=== PATIENT | male | born 1955 | race African-American/Black ===

== ENCOUNTER 2019-09-02 20:24 | Inpatient (IN) | payer MEDICARE, OTHER ==
[2019-09-02] MEDS ORDERED: ACETAMINOPHEN 325 MG TABLET PO ONE (20:42)
[2019-09-02] MEDS ORDERED: NORMAL SALINE IV PRN (22:13)
--- NOTE | 2019-09-02 22:17 | ER Document Report ---
ED General - General Chief Complaint: Dizziness Stated Complaint: FEVER/HEADACHE Time Seen by Provider: 09/02/19 21:45 Mode of Arrival: Ambulatory Information source: Patient Notes: 63-year-old male presents to the emergency department with a complaint of cough, fever, decreased appetite, generalized body aches and pains which began this morning. He states that he was feeling fine until the onset of symptoms earlier during the day. He denies exposure to anyone with known coronavirus infection. He has a history of hypertension, diabetes mellitus and he is a smoker. On arrival temperature was notably 103, heart rate 124, O2 sat room air 92% with a respiratory rate which fluctuated between 20 and 40 breaths/min. - Related Data Allergies/Adverse Reactions: No Known Allergies Allergy (Unverified 09/02/19 22:33) Home Medications: Symbicort. Asa 81mg daily. DM pill. B/P pill Past Medical History - Social History Smoking Status: Current Every Day Smoker Chew tobacco use (# tins/day): No Frequency of alcohol use: Occasional Drug Abuse: None Family History: Reviewed & Not Pertinent Patient has homicidal ideation: No - Past Medical History Cardiac Medical History: Reports: Hx Hypertension Denies: Hx Congestive Heart Failure Pulmonary Medical History: Denies: Hx COPD Endocrine Medical History: Reports: Hx Diabetes Mellitus Type 2 Review of Systems - Review of Systems Notes: Constitutional: + Fever. HENT: Negative for sore throat. Eyes: Negative for visual changes. Cardiovascular: Negative for chest pain. Respiratory: + Cough and + shortness of breath. Gastrointestinal: Negative for abdominal pain, vomiting or diarrhea. Genitourinary: Negative for dysuria. Musculoskeletal: + Generalized myalgia Skin: Negative for rash. Neurological: Negative for headaches, weakness or numbness. 10 point ROS negative except as marked above and in HPI. Physical Exam - Vital signs Vitals: Temp Pulse Resp BP Pulse Ox 103.0 F H 124 H 20 125/66 92 09/02/19 20:35 09/02/19 20:35 09/02/19 20:35 09/02/19 20:35 09/02/19 20:35 - Notes Notes: PHYSICAL EXAMINATION: Physical Exam: General: Well-nourished well-developed in no acute distress HEENT: NC/AT, pupils equal round and reactive to light, MM moist,nares clear, oropharynx clear, airway patent Neck: supple, no adenopathy, no masses. Good range of motion Lungs: clear, no wheezing, no rales no rhonchi CVS: Tachycardic rate and rhythm no murmur gallop or rub Abdomen: Soft, active, nontender, no masses, no hepatosplenomegaly Ext: No edema, clubbing or cyanosis. Neuro: Alert and responsive, moving all 4 extremities on command, cranial nerves intact, no focal findings Skin: Intact no open lesions, no rash PSYCH: Normal mood, normal affect. Course - Re-evaluation Re-evalutation: 09/03/19 04:12 63-year-old male presents to the emergency department with fever, myalgias, headache, and generalized weakness. States symptoms began approximately 2 days ago in his been progressive since that time. Patient is evaluated for possible sepsis with blood cultures x2, lactate level, IV fluids at 30 mL/kg and Zosyn IV. Chest x-ray is negative and the patient's urinalysis is negative for signs of infection. I contacted the hospitalist, Dr. Navarrete, he will admit the patient to the hospital for further evaluation and treatment. A rapid COVID-19 tests is being done prior to admission. - Vital Signs Vital signs: Temp Pulse Resp BP Pulse Ox 98.6 F 124 H 14 93/63 L 100 09/03/19 01:30 09/02/19 20:35 09/03/19 04:00 09/03/19 04:00 09/03/19 04:00 - Laboratory Result Diagrams: 09/02/19 20:50 09/02/19 20:50 Laboratory results interpreted by me: 09/02/19 09/02/19 09/03/19 20:50 20:50 01:48 WBC 12.0 H RBC 4.24 L Hgb 13.2 L Lymph % (Auto) 6.9 L Absolute Neuts (auto) 10.4 H Seg Neutrophils % 86.7 H Sodium 130.0 L Potassium 3.4 L Chloride 95 L BUN 49 H Creatinine 3.61 H Est GFR ( Amer) 21 L Est GFR (MDRD) Non-Af 17 L Glucose 155 H Calcium 8.3 L Total Bilirubin 1.8 H Direct Bilirubin 1.2 H Urine Protein 100 H Urine Blood LARGE H Urine Urobilinogen 4.0 H - Diagnostic Test Radiology reviewed: Image reviewed, Reports reviewed - Chest x-ray: No acute pulmonary findings. - EKG Interpretation by [place] Rate: Tachycardia - Sinus tachycardia with a rate of 104, no acute ST or T wave abnormalities noted. Critical Care Note - Critical Care Note Total time excluding time spent on procedures (mins): 60 - Critical care time spent obtaining history from patient or surrogate, discussions with consultants, development of treatment plan with patient or surrogate, evaluation of patient's response to treatment, examination of patient, ordering and performing treatments and interventions, ordering and review of laboratory studies, re- evaluation of patient's condition, ordering and review of radiographic studies and review of old charts Discharge - Discharge Clinical Impression: SIRS (systemic inflammatory response syndrome), OMER (acute kidney injury), Volume depletion, Diabetes mellitus type 2 in nonobese Fever Qualifiers: Fever type: unspecified Qualified Code(s): R50.9 - Fever, unspecified Condition: Good Disposition: ADMITTED INPATIENT Admitting Provider: Rosalba (Hospitalist) Unit Admitted: Medical Floor
--- NOTE | 2019-09-02 22:36 | RADIOLOGY REPORT (SQ) ---
EXAM DESCRIPTION: Chest radiograph one view, CLINICAL HISTORY: fever, cough COMPARISON: None FINDINGS: Cardiac silhouette is within normal limits. EKG leads project over the chest. There is mild elevation of the right hemidiaphragm There is no focal parenchymal or pleural disease. There is no acute osseous process visualized. IMPRESSION: No evidence of acute cardiopulmonary disease.
[2019-09-02 22:56] LABS: ABSOLUTE LYMPHOCYTES (AUTO) 0.8 10^3/uL (0.5-4.7); ABSOLUTE MONOCYTES (AUTO) 0.7 10^3/uL (0.1-1.4); ABSOLUTE NEUT (AUTO) 10.4 10^3/uL (1.7-8.2); BASOPHILS % (AUTO) 0.4 % (0-2); HEMATOCRIT 37.9 % (37.9-51.0); HEMOGLOBIN 13.2 g/dL (13.5-17.0); LYMPHOCYTES % (AUTO) 6.9 % (13-45); MEAN CORPUSCULAR HEMOGLOBIN 31.2 pg (27.0-33.4); MEAN CORPUSCULAR HGB CONC 34.9 g/dL (32.0-36.0); MEAN CORPUSCULAR VOLUME 89 fl (80-97); PLATELET COUNT 182 10^3/uL (150-450); RED BLOOD COUNT 4.24 10^6/uL (4.35-5.55); RED CELL DISTRIBUTION WIDTH 13.2 % (11.5-14.0); SEGMENTED NEUTROPHILS % (AUTO) 86.7 % (42-78); TOTAL CELLS COUNTED % (AUTO) 100 %
[2019-09-02 23:08] LABS: ALBUMIN 3.5 g/dL (3.5-5.0); ALKALINE PHOSPHATASE 74 U/L (38-126); ANION GAP 11 (5-19); ASPARTATE AMINO TRANSFERASE 55 U/L (17-59); BILIRUBIN,DIRECT 1.2 mg/dL (0.0-0.4); BILIRUBIN,TOTAL 1.8 mg/dL (0.2-1.3); BLOOD UREA NITROGEN 49 mg/dL (7-20); CALCIUM 8.3 mg/dL (8.4-10.2); CARBON DIOXIDE 24 mmol/L (22-30); CHLORIDE 95 mmol/L (98-107); GLUCOSE 155 mg/dL (75-110); POTASSIUM 3.4 mmol/L (3.6-5.0); TOTAL PROTEIN 7.1 g/dL (6.3-8.2)
[2019-09-02] MEDS ORDERED: IBUPROFEN 800 MG TABLET PO ONE (23:25)
[2019-09-02 23:43] LABS: A TYPE INFLUENZA AG NEGATIVE (NEGATIVE); B INFLUENZA AG NEGATIVE (NEGATIVE)
[2019-09-02] MEDS ORDERED: PIPERACILLIN/TAZOBACTAM 4.5 GM VIAL IV ONE (23:57)
[2019-09-03] MEDS ORDERED: PIPERACILLIN SODIUM/TAZOBACTAM 4.5 GM in NORMAL SALINE 100 ML IV SCH ×2
[2019-09-03] MEDS: PIPERACILLIN SODIUM/TAZOBACTAM 4.5 GM in NORMAL SALINE 100 ML IV SCH ×2 (00:07→03:15)
[2019-09-03 02:28] LABS: APPEARANCE,URINE CLOUDY; BILIRUBIN,URINE NEGATIVE (NEGATIVE); COLOR,URINE AMBER; GLUCOSE, URINE NEGATIVE (NEGATIVE); KETONES,URINE NEGATIVE (NEGATIVE); PROTEIN,URINE 100 mg/dL (NEGATIVE); URINE SPECIFIC GRAVITY 1.017
[2019-09-03] MEDS ORDERED: NORMAL SALINE 1000 ML 1,000 ML IV ONE ×2 (03:20→04:09)
[2019-09-03] MEDS ORDERED: MAG HYDROX/AL HYDROX/SIMETH SUSP 30 ML UDCUP PO PRN (03:55)
[2019-09-03] MEDS ORDERED: MAGNESIUM HYDROXIDE SUSP 30 ML UDCUP PO PRN (03:55)
[2019-09-03] MEDS ORDERED: PROMETHAZINE HCL INJ 25 MG/1 ML VIAL IV PRN (03:55)
[2019-09-03] MEDS ORDERED: LORAZEPAM INJ 2 MG/1 ML VIAL IV PRN (03:55)
[2019-09-03] MEDS ORDERED: NICOTINE 21 MG/24 HR PATCH.TD24 TD PRN (03:55)
[2019-09-03] MEDS ORDERED: MORPHINE SULFATE 10 MG/ML INJ IV PRN ×3 (03:55)
[2019-09-03] MEDS ORDERED: DEXTROSE 40% GEL 15 GM TUBE PO PRN ×2 (03:57)
[2019-09-03] MEDS ORDERED: GLUCAGON,HUMAN RECOMB 1 MG INJ IM PRN (03:57)
[2019-09-03] MEDS ORDERED: RINGERS SOLUTION,LACTATED 1,000 ML IV PRN (03:57)
[2019-09-03] MEDS ORDERED: DEXTROSE 50%-WATER 25 GM/50 ML DISP.SYRIN IV PRN ×2 (03:57)
[2019-09-03] MEDS ORDERED: MEROPENEM 500 MG VIAL IV PRN (04:00)
[2019-09-03] MEDS: FAMOTIDINE 20 MG TABLET PO SCH ×3 (04:40→22:14)
[2019-09-03] MEDS ORDERED: MEROPENEM 500 MG VIAL ONE (06:04)
[2019-09-03] MEDS: MEROPENEM 500 MG in NORMAL SALINE 50 ML IV SCH ×2 (06:17→14:32)
[2019-09-03] MEDS: HEPARIN SOD (PORCINE) 5,000 UNIT/ML 1 ML VIAL SUBCUT SCH ×3 (06:18→22:12)
--- NOTE | 2019-09-03 06:31 | PDOC H&P ---
History of Present Illness Admission Date/PCP: 09/03/2019 03:28 Alcon Goss MD Patient complains of: Fever History of Present Illness: BRUNILDA LIMON is a 63 year old male who presented emergency room with a 1 day history of fever. He admits rapid onset of a subjective fever beginning on the morning of 09/02/2019. His fever was accompanied by chills, mild dyspnea, headache and a nonproductive cough. His fever was associated with severe malaise, ague, and decreased appetite. He denies other associated or accompanying signs and symptoms. He denies prior similar episodes. He has not identified any aggravating or ameliorating factors for his fever. In the emergency room he was found to have a fever of 103 F with a mild tachycardia and mild hypoxia. His white blood count was mildly elevated at 12,000 however his serum creatinine was 3.61. He was treated as a possible sepsis in the ER and subsequently admitted to the hospital for further evaluation and treatment. He was tested negative for COVID-19 in the ER. Past Medical History Cardiac Medical History: Reports: Hypertension Denies: Atrial Fibrillation, Congestive Heart Failure, Coronary Artery Disease, Myocardial Infarction, Hyperlipidema Pulmonary Medical History: Denies: Asthma, Chronic Obstructive Pulmonary Disease (COPD) EENT Medical History: Denies: Cataracts, Ears - Hearing aids Neurological Medical History: Denies: Hemorrhagic CVA, Ischemic CVA, Seizures Endocrine Medical History: Reports: Diabetes Mellitus Type 2 Denies: Diabetes Mellitus Type 1, Hyperthyroidism, Hypothyroidism, Obesity Renal/ Medical History: Denies: Chronic Kidney Disease, Nephrolithiasis Malignancy Medical History: Reports: None GI Medical History: Denies: Cirrhosis, Crohn's Disease, Gastroesophageal Reflux Disease, Hepatitis, Peptic Ulcer Disease, Ulcerative Colitis Musculoskeltal Medical History: Denies: Arthritis, Gout Skin Medical History: Denies: Eczema, Psoriasis Psychiatric Medical History: Reports: Tobacco Dependency Denies: Alcohol Dependency, Substance Abuse Traumatic Medical History: Reports: None Hematology: Denies: Anemia, Bleeding Tendencies Infectious Medical History: Reports: None Past Surgical History Past Surgical History: Reports: None Social History Information Source: Patient Lives with: Spouse/Significant other Smoking Status: Current Every Day Smoker Cigarettes Packs Per Day: 1 Electronic Cigarette use?: No Frequency of Alcohol Use: Social - Generally drinks on weekends Hx Recreational Drug Use: No Drugs: None Hx Prescription Drug Abuse: No - Advance Directive Resuscitation Status: Full Code Surrogate healthcare decision maker:: Desmond Limon Family History Family History: DM. denies: CAD, Hypertension, Malignancy Parental Family History Reviewed: Yes Children Family History Reviewed: No Sibling(s) Family History Reviewed.: Yes Medication/Allergy Allergies/Adverse Reactions: No Known Allergies Allergy (Unverified 09/02/19 22:33) Review of Systems Constitutional: PRESENT: as per HPI, chills, fever(s), headache(s) Eyes: ABSENT: visual disturbances, other - Eye pain Ears: ABSENT: hearing changes, other - Ear pain Nose, Mouth, and Throat: PRESENT: as per HPI, headache(s). ABSENT: sore throat Cardiovascular: ABSENT: chest pain, dyspnea on exertion, palpitations Respiratory: PRESENT: as per HPI, cough, dyspnea. ABSENT: hemoptysis, sputum Gastrointestinal: PRESENT: other - Decreased appetite. ABSENT: abdominal pain, constipation, diarrhea, nausea, vomiting Genitourinary: ABSENT: difficulty urinating, dysuria, hematuria Musculoskeletal: ABSENT: back pain, joint swelling, muscle weakness Integumentary: ABSENT: pruritus, rash Neurological: ABSENT: confusion, convulsions, focal weakness, memory loss, syncope Psychiatric: ABSENT: anxiety, depression Endocrine: ABSENT: cold intolerance, heat intolerance, polydipsia, polyphagia, polyuria Hematologic/Lymphatic: ABSENT: easy bleeding, easy bruising Allergic/Immunologic: ABSENT: seasonal rhinorrhea Physical Exam Vital Signs: Temp Pulse Resp BP Pulse Ox 98.6 F 124 H 20 93/65 L 99 09/03/19 01:30 09/02/19 20:35 09/03/19 02:44 09/03/19 02:44 09/03/19 02:44 Intake & Output 09/01/19 09/02/19 09/03/19 23:59 23:59 23:59 Intake Total 2300 Balance 2300 Weight 73 kg General appearance: PRESENT: no acute distress, cooperative Head exam: PRESENT: atraumatic, normocephalic Eye exam: PRESENT: conjunctiva pink. ABSENT: conjunctival injection, scleral icterus Ear exam: PRESENT: normal external ear exam. ABSENT: bleeding, drainage Mouth exam: PRESENT: dry mucosa, neck supple Neck exam: ABSENT: thyromegaly, tracheal deviation Respiratory exam: PRESENT: clear to auscultation tammy, symmetrical, unlabored Cardiovascular exam: PRESENT: RRR. ABSENT: clicks, gallop, rubs Pulses: PRESENT: normal radial pulses, normal dorsalis pedis pul Vascular exam: PRESENT: normal capillary refill. ABSENT: pallor GI/Abdominal exam: PRESENT: normal bowel sounds, soft. ABSENT: tenderness Rectal exam: PRESENT: deferred Extremities exam: ABSENT: joint swelling, pedal edema Musculoskeletal exam: ABSENT: deformity, dislocation Neurological exam: PRESENT: alert, oriented to person, oriented to place, oriented to time, oriented to situation, CN II-XII grossly intact. ABSENT: motor sensory deficit Psychiatric exam: PRESENT: appropriate affect, normal mood Skin exam: PRESENT: dry, intact, warm. ABSENT: jaundice, rash, urticaria Results Laboratory Results: 09/02/19 20:50 09/02/19 20:50 09/02/19 09/02/19 09/02/19 20:50 20:50 20:50 WBC 12.0 H RBC 4.24 L Hgb 13.2 L Hct 37.9 MCV 89 MCH 31.2 MCHC 34.9 RDW 13.2 Plt Count 182 Seg Neutrophils % 86.7 H Sodium 130.0 L Potassium 3.4 L Chloride 95 L Carbon Dioxide 24 Anion Gap 11 BUN 49 H Creatinine 3.61 H Est GFR ( Amer) 21 L Glucose 155 H Lactic Acid 1.7 Calcium 8.3 L Total Bilirubin 1.8 H AST 55 Alkaline Phosphatase 74 Total Protein 7.1 Albumin 3.5 Urine Color Urine Appearance Urine pH Ur Specific [place] Urine Protein Urine Glucose (UA) Urine Ketones Urine Blood Urine RBC (Auto) 09/03/19 09/03/19 01:48 01:48 WBC RBC Hgb Hct MCV MCH MCHC RDW Plt Count Seg Neutrophils % Sodium Potassium Chloride Carbon Dioxide Anion Gap BUN Creatinine Est GFR ( Amer) Glucose Lactic Acid 1.3 Calcium Total Bilirubin AST Alkaline Phosphatase Total Protein Albumin Urine Color MAYI Urine Appearance CLOUDY Urine pH 5.0 Ur Specific [place] 1.017 Urine Protein 100 H Urine Glucose (UA) NEGATIVE Urine Ketones NEGATIVE Urine Blood LARGE H Urine RBC (Auto) 4 Impressions: Chest X-Ray 09/02/19 21:46 IMPRESSION: No evidence of acute cardiopulmonary disease. Assessment and Plan - Diagnosis (1) SIRS (systemic inflammatory response syndrome) Is this a current diagnosis for this admission?: Yes (2) Elevated serum creatinine Is this a current diagnosis for this admission?: Yes (3) Diabetes mellitus type 2 in nonobese Is this a current diagnosis for this admission?: Yes (4) Hypertension Qualifiers: Hypertension type: essential hypertension Qualified Code(s): I10 - Essential (primary) hypertension Is this a current diagnosis for this admission?: Yes (5) Hyponatremia Is this a current diagnosis for this admission?: Yes (6) Hypokalemia Is this a current diagnosis for this admission?: Yes (7) Tobacco use disorder, continuous Is this a current diagnosis for this admission?: Yes - Plan Summary Summary: Patient will be admitted to the medical floor where he will receive routine supportive and symptomatic cares. He will be treated with high-volume IV fluids utilizing lactated Ringer's solution at 250 mL/h initially. He will receive meropenem 500 mg IV every 8 hours. Blood cultures are pending. He will use Ativan 1 mg IV every 4 hours as needed for restlessness or anxiety. He will receive morphine sulfate 2 to 4 mg IV every 2 hours as needed for pain utilizing a sliding scale for dosing. CBCs, metabolic profiles, hemoglobin A1c's, magnesium levels, lipid profiles, thyroid profiles and additional radiography will be obtained as appropriate. He will initially be treated with a cardiac, prerenal and diabetic restricted diet. A nephrology consultation with Dr. Heredia will be obtained. Patient's medication will need to be adjusted in light of his newly discovered renal disease. Before meals and at bedtime Accu- Cheks will be obtained with sliding scale insulin used to treat hyperglycemia and a hypoglycemic protocol in place. Smoking cessation is advised and counseled briefly at the bedside. A nicotine replacement patch will be available for the patient's use, if desired. - Time Time Spent with patient: 15-24 minutes Smoking Cessation Education: 3 to 10 minutes Medications reviewed and adjusted accordingly: Yes Anticipated discharge: Home - Inpatient Certification Based on my medical assessment, after consideration of the patient's co morbidities, presenting symptoms, or acuity I expect that the services needed warrant INPATIENT care.: Yes I certify that my determination is in accordance with my understanding of Medicare's requirements for reasonable and necessary INPATIENT services [42 CFR 412.3e].: Yes Medical Necessity: Need Close Monitoring Due to Risk of Patient Decompensation, Need For IV Fluids, Need for IV Antibiotics, Risk of Complication if Not Cared For in Hospital, Risk of Diagnosis Which Will Require Inpatient Eval/Care/Monitoring
[2019-09-03] MEDS: INSULIN REG, HUMAN 100 UNIT/ML 3 ML VIAL (PYX) SUBCUT SCH ×4 (08:23→22:13)
[2019-09-03] MEDS: DOCUSATE SODIUM 100 MG CAPSULE PO SCH ×2 (09:31→17:51)
--- NOTE | 2019-09-03 09:35 | RADIOLOGY REPORT (SQ) ---
EXAM DESCRIPTION: CHEST 2 VIEWS IMAGES COMPLETED DATE/TIME: 09/03/2019 9:04 am REASON FOR STUDY: fever COMPARISON: Previous day. EXAM PARAMETERS: NUMBER OF VIEWS: two views TECHNIQUE: Digital Frontal and Lateral radiographic views of the chest acquired. RADIATION DOSE: NA LIMITATIONS: none FINDINGS: LUNGS AND PLEURA: Segmental airspace disease in the right lower lobe. No effusion. MEDIASTINUM AND HILAR STRUCTURES: No masses or contour abnormalities. HEART AND VASCULAR STRUCTURES: Heart normal size. No evidence for failure. BONES: No acute findings. HARDWARE: None in the chest. OTHER: No other significant finding. IMPRESSION: Right lower lobe pneumonia. TECHNICAL DOCUMENTATION: JOB ID: [id number] [employer]- All Rights Reserved Reading location - IP/workstation name: [email or web address]
[2019-09-03 09:48] LABS: HEMATOCRIT 32.3 % (37.9-51.0); HEMOGLOBIN 11.4 g/dL (13.5-17.0); MEAN CORPUSCULAR HEMOGLOBIN 31.4 pg (27.0-33.4); MEAN CORPUSCULAR HGB CONC 35.3 g/dL (32.0-36.0); MEAN CORPUSCULAR VOLUME 89 fl (80-97); PLATELET COUNT 152 10^3/uL (150-450); RED BLOOD COUNT 3.64 10^6/uL (4.35-5.55); RED CELL DISTRIBUTION WIDTH 13.7 % (11.5-14.0); WHITE BLOOD COUNT 9.1 10^3/uL (4.0-10.5)
[2019-09-03 10:16] LABS: ANION GAP 10 (5-19); BLOOD UREA NITROGEN 49 mg/dL (7-20); CALCIUM 7.2 mg/dL (8.4-10.2); CARBON DIOXIDE 17 mmol/L (22-30); CHLORIDE 105 mmol/L (98-107); GLUCOSE 111 mg/dL (75-110); POTASSIUM 3.7 mmol/L (3.6-5.0)
[2019-09-03 13:20] LABS: ANION GAP 14 (5-19); BLOOD UREA NITROGEN 52 mg/dL (7-20); CALCIUM 7.4 mg/dL (8.4-10.2); CARBON DIOXIDE 16 mmol/L (22-30); CHLORIDE 104 mmol/L (98-107); GLUCOSE 108 mg/dL (75-110); POTASSIUM 3.9 mmol/L (3.6-5.0)
[2019-09-03] MEDS: ACETAMINOPHEN 325 MG TABLET PO PRN ×2 (14:36→23:44)
[2019-09-03] MEDS: NORMAL SALINE 1000 ML 1,000 ML IV PRN (14:37)
--- NOTE | 2019-09-03 17:57 | RADIOLOGY REPORT (SQ) ---
EXAM DESCRIPTION: U/S RETROPERITON LTD IMAGES COMPLETED DATE/TIME: 09/03/2019 5:32 pm REASON FOR STUDY: OMER COMPARISON: None. TECHNIQUE: Dynamic and static grayscale images acquired of the kidneys and bladder and recorded on P ACS. Additional selected color Doppler and spectral images recorded. LIMITATIONS: None. FINDINGS: RIGHT KIDNEY: The right kidney measures 11.3 x 5.6 x 5.7 cm, normal size. Normal echoge nicity. No solid or suspicious masses. No hydronephrosis. No calcifications. LEFT KIDNEY: The left kidney measures 10.6 x 4.1 x 5.4 cm, normal size. Normal echogenicity. No solid or suspicious masses. No hydronephrosis. No calcifications. BLADDER: No masses. Bilateral ureteral jets are not visualized. OTHER FINDINGS: No other significant finding. IMPRESSION: 1. NORMAL RENAL AND BLADDER ULTRASOUND. TECHNICAL DOCUMENTATION: JOB ID: [id number] [employer]- All Rights Reserved Reading location - IP/workstation name: [email or web address]
--- NOTE | 2019-09-03 19:29 | PDOC CONSULTATION ---
Consultation Consult Date: 09/03/19 Provider Consulted: PAULINE GARRIDO Consult reason:: OMER History of Present Illness Admission Date/PCP: 09/03/19 04:06 History of Present Illness: BRUNILDA LIMON is a 63 year old male with history of hypertension and diabetes mellitus type 2 who presented to the emergency room last night due to acute onset of fever associated with chills, mild dyspnea, headache, nonproductive cough, malaise, fatigue and decreased appetite. In the emergency room he had a fever of 103 F, mild tachycardia and mild hypoxia. He also presented with elevated white count of 12,000. His blood pressure is relatively on the low side as low as 86/62 and has been hanging around 90s over 60s until current. He also presented with an elevated BUN of 49, creatinine of 3.61 with EGFR of 21. Baseline kidney function is unknown as the last visit her blood work available was from July 01, 2013 which at that time he had a BUN of 19, creatinine of 1.42 with GFR greater than 60. His urinalysis is positive for protein of 100, large blood but only for RBC, had WBC of 6, hyaline casts of stool and only 1 squamous cells. His first chest x-ray showed no evidence of any acute cardi opulmonary disease. A repeat chest x-ray was done today which showed right lower lobe pneumonia. He was given IV fluid boluses and since admission his fluid balance is +3 L. Admitting impression was SIRS. He tested negative for influenza A, influenza B, group A strep and COVID-19. Upon talking to the patient today he denies any history of travel. He denies any nausea, vomiting, no diarrhea. He denies any shortness of breath or chest pains. Patient stated that his primary care provider, Dr. Frias mentioned to him that he has decreased kidney function last year and this is words, he said "50- 50". He said he has been drinking fluids but then also stated that he had decreased appetite for the past 24 hours. He denies any use of NSAIDs, intake of any herbal medications no other new medications. He denies any decreased urine output, microhematuria nor foamy urine. He denies any unusual rash nor polyarthralgia. Patient is currently being treated with IV meropenem and normal saline at 125 mL an hour. His labs today showed a BUN of 49, creatinine of 4.23, EGFR of 17, bicarbonate of 17 and calcium of 7.2. Past Medical History Cardiac Medical History: Reports: Hypertension-primary Endocrine Medical History: Reports: Diabetes Mellitus Type 2 Psychiatric Medical History: Reports: Tobacco Dependency Past Surgical History Past Surgical History: Reports: None Social History Information Source: Patient Lives with: Spouse/Significant other Smoking Status: Current Every Day Smoker Cigarettes Packs Per Day: 1 Electronic Cigarette use?: No Number of Years Smokin Frequency of Alcohol Use: Social - Generally drinks on weekends Hx Recreational Drug Use: No Drugs: None Hx Prescription Drug Abuse: No - Advance Directive Resuscitation Status: Full Code Family History Family History: DM - Mother, End Stage Renal Disease - Sister who is on dialysis, Hypertension - Mother Parental Family History Reviewed: Yes Children Family History Reviewed: Unknown Sibling(s) Family History Reviewed.: Yes Medication/Allergy Home Medications: Aspirin [Ecotrin 325 mg EC Tablet] 325 mg PO DAILY 09/03/19 Hydrochlorothiazide 12.5 mg PO QAM 09/03/19 Simvastatin 20 mg PO QPM 09/03/19 Telmisartan 80 mg PO QAM 09/03/19 Allergies/Adverse Reactions: No Known Allergies Allergy (Unverified 09/02/19 22:33) Review of Systems All systems: reviewed and no additional remarkable complaints except as stated Review of Systems: Constitutional: ABSENT: weight gain, weight loss; admits fever, chills, headache, fatigue and body malaise Eyes: ABSENT: visual disturbances Ears: ABSENT: hearing changes Cardiovascular: ABSENT: chest pain, dyspnea on exertion, edema, orthropnea, palpitations Respiratory: ABSENT: dyspnea, hemoptysis; admits nonproductive cough Gastrointestinal: ABSENT: abdominal pain, constipation, diarrhea, hematemesis, hematochezia, nausea, vomiting Genitourinary: ABSENT: dysuria, hematuria Musculoskeletal: ABSENT: joint swelling Integumentary: ABSENT: rash, wounds Neurological: ABSENT: abnormal gait, abnormal speech, confusion, dizziness, focal weakness, numbness, syncope Psychiatric: ABSENT: anxiety, depression Endocrine: ABSENT: cold intolerance, heat intolerance, polydipsia, polyuria Hematologic/Lymphatic: ABSENT: easy bleeding, easy bruising, lymphadenopathy Physical Exam Vital Signs: Temp Pulse Resp BP Pulse Ox 98.0 F 83 18 90/60 L 95 09/03/19 07:05 09/03/19 07:05 09/03/19 07:05 09/03/19 07:05 09/03/19 07:05 Intake & Output 09/02/19 09/03/19 09/04/19 06:59 06:59 06:59 Intake Total 3433 50 Output Total 0 Balance 3433 50 Weight 82.2 kg Exam: General appearance: No acute distress, cooperative, well-developed, well- nourished Head exam: PRESENT: atraumatic, normocephalic Eye exam: PRESENT: Conjunctiva Tobias, EOMI, PERRLA. ABSENT: conjunctival injection, scleral icterus Mouth exam: PRESENT: moist, neck supple, tongue midline Neck exam: PRESENT: full ROM. ABSENT: carotid bruit, JVD, lymphadenopathy, thyromegaly Respiratory exam: PRESENT: clear to auscultation bilaterally. Minimal basal crackles ABSENT: Rhonchi, stridor, wheezes Cardiovascular exam: PRESENT: RRR, +S1, +S2. ABSENT: systolic murmur Pulses: PRESENT: normal radial pulses, normal dorsalis pedis pulses GI/Abdominal exam: PRESENT: normal bowel sounds, soft. ABSENT: guarding, mass, tenderness Rectal exam: Deferred Extremities exam: PRESENT: full ROM. ABSENT: calf tenderness, pedal edema Musculoskeletal: PRESENT: full ROM. ABSENT: deformity Neurological exam: PRESENT: alert, Awake, Oriented to person, Oriented to place, Oriented to time, reflexes normal, CN II-XII grossly intact. ABSENT: motor sensory deficit Psychiatric exam: PRESENT: appropriate affect, normal mood. ABSENT: homicidal ideation, suicidal ideation Skin exam: PRESENT: intact, dry, warm. ABSENT: rash Results Laboratory Results: 09/03/19 09:24 09/03/19 09:24 09/02/19 09/02/19 09/02/19 20:50 20:50 20:50 WBC 12.0 H RBC 4.24 L Hgb 13.2 L Hct 37.9 MCV 89 MCH 31.2 MCHC 34.9 RDW 13.2 Plt Count 182 Seg Neutrophils % 86.7 H Sodium 130.0 L Potassium 3.4 L Chloride 95 L Carbon Dioxide 24 Anion Gap 11 BUN 49 H Creatinine 3.61 H Est GFR ( Amer) 21 L Glucose 155 H Lactic Acid 1.7 Calcium 8.3 L Total Bilirubin 1.8 H AST 55 Alkaline Phosphatase 74 Total Protein 7.1 Albumin 3.5 Free T3 pg/mL Urine Color Urine Appearance Urine pH Ur Specific [place] Urine Protein Urine Glucose (UA) Urine Ketones Urine Blood Urine RBC (Auto) 09/02/19 09/03/19 09/03/19 20:50 01:48 01:48 WBC RBC Hgb Hct MCV MCH MCHC RDW Plt Count Seg Neutrophils % Sodium Potassium Chloride Carbon Dioxide Anion Gap BUN Creatinine Est GFR ( Amer) Glucose Lactic Acid 1.3 Calcium Total Bilirubin AST Alkaline Phosphatase Total Protein Albumin Free T3 pg/mL 2.78 Urine Color MAYI Urine Appearance CLOUDY Urine pH 5.0 Ur Specific [place] 1.017 Urine Protein 100 H Urine Glucose (UA) NEGATIVE Urine Ketones NEGATIVE Urine Blood LARGE H Urine RBC (Auto) 4 09/03/19 09/03/19 09/03/19 05:03 09:24 09:24 WBC 9.1 RBC 3.64 L Hgb 11.4 L Hct 32.3 L MCV 89 MCH 31.4 MCHC 35.3 RDW 13.7 Plt Count 152 Seg Neutrophils % Sodium 132.0 L Potassium 3.7 Chloride 105 Carbon Dioxide 17 L Anion Gap 10 BUN 49 H Creatinine 4.23 H Est GFR ( Amer) 17 L Glucose 111 H Lactic Acid 1.2 Calcium 7.2 L Total Bilirubin AST Alkaline Phosphatase Total Protein Albumin Free T3 pg/mL Urine Color Urine Appearance Urine pH Ur Specific [place] Urine Protein Urine Glucose (UA) Urine Ketones Urine Blood Urine RBC (Auto) Impressions: Chest X-Ray 09/03/19 08:09 IMPRESSION: Right lower lobe pneumonia. Assessment & Plan - Diagnosis (1) OMER (acute kidney injury) Is this a current diagnosis for this admission?: Yes Plan: Patient is subjectively and reportedly nonoliguric although urine output is not currently being quantified. Possibly due to acute prerenal azotemia due to poor oral intake and hypotension but need to consider acute tubular necrosis as well. Patient has mild proteinuria and very minimal microhematuria. Baseline kidney function is unknown. Per history the patient might have underlying chronic kidney disease as well with risk factors of diabetes and hypertension. We will get previous lab records from Dr. Goss within the year to determine base line kidney function. Continue IV fluid hydration. Avoid NSAIDs and other nephrotoxic medications. Stricken intake and output recording. We will check kidney ultrasound in this elderly gentleman daily. Check urine microalbumin to creatinine ratio. Monitor kidney function. At this time the patient does not require any acute renal replacement therapy. (2) Right lower lobe pneumonia Is this a current diagnosis for this admission?: Yes Plan: On antibiotics per hospitalist. (3) SIRS (systemic inflammatory response syndrome) Is this a current diagnosis for this admission?: Yes (4) Metabolic acidosis Is this a current diagnosis for this admission?: Yes Plan: Secondary to OMER and expansion acidosis with IV hydration. (5) Hyponatremia Is this a current diagnosis for this admission?: Yes Plan: Likely due to volume depletion. (6) Hypocalcemia Plan: Monitor and replace as necessary. (7) Hypertension Qualifiers: Hypertension type: essential hypertension Qualified Code(s): I10 - Essential (primary) hypertension Is this a current diagnosis for this admission?: Yes Plan: Currently with relative hypotension due to hypovolemia. Hold blood pressure medications. (8) Diabetes mellitus type 2 in nonobese Is this a current diagnosis for this admission?: Yes - Notes Notes: Thank you very much for this consultation. We will follow-up with you. - Time Time Spent: 50 to 70 Minutes
[2019-09-03] MEDS ORDERED: AZITHROMYCIN INJ 500 MG VIAL IV SCH (20:00)
[2019-09-03] MEDS: AZITHROMYCIN 500 MG in DEXTROSE 5%-WATER 250 ML IV SCH (22:13)
--- NOTE | 2019-09-03 22:58 | EKG REPORT ---
SEVERITY:- OTHERWISE NORMAL ECG - SINUS TACHYCARDIA : Confirmed by: Adriano Carrasco 03-Sep-2019 22:57:09
[2019-09-03] MEDS: GUAIFENESIN SYRP 200 MG/10 ML UDC PO PRN (23:47)
[2019-09-04] MEDS: NORMAL SALINE 1000 ML 1,000 ML IV PRN ×3 (00:50→21:11)
[2019-09-04] MEDS: MEROPENEM 500 MG in NORMAL SALINE 50 ML IV SCH ×2 (04:09→17:00)
[2019-09-04] MEDS: ACETAMINOPHEN 325 MG TABLET PO PRN ×4 (05:36→21:12)
[2019-09-04] MEDS: HEPARIN SOD (PORCINE) 5,000 UNIT/ML 1 ML VIAL SUBCUT SCH ×3 (05:38→21:12)
[2019-09-04 06:10] LABS: HEMATOCRIT 32.8 % (37.9-51.0); HEMOGLOBIN 11.6 g/dL (13.5-17.0); MEAN CORPUSCULAR HEMOGLOBIN 31.2 pg (27.0-33.4); MEAN CORPUSCULAR HGB CONC 35.4 g/dL (32.0-36.0); MEAN CORPUSCULAR VOLUME 88 fl (80-97); PLATELET COUNT 150 10^3/uL (150-450); RED BLOOD COUNT 3.72 10^6/uL (4.35-5.55); RED CELL DISTRIBUTION WIDTH 14.1 % (11.5-14.0); WHITE BLOOD COUNT 8.6 10^3/uL (4.0-10.5)
[2019-09-04 06:32] LABS: ANION GAP 10 (5-19); BLOOD UREA NITROGEN 48 mg/dL (7-20); CALCIUM 7.4 mg/dL (8.4-10.2); CARBON DIOXIDE 19 mmol/L (22-30); CHLORIDE 105 mmol/L (98-107); CHOLESTEROL 70.54 mg/dL (0-200); GLUCOSE 109 mg/dL (75-110); POTASSIUM 3.8 mmol/L (3.6-5.0); TRIGLYCERIDES 119 mg/dL (<150)
[2019-09-04 06:44] LABS: DIRECT LDL < 30 mg/dL (<100)
[2019-09-04] MEDS: INSULIN REG, HUMAN 100 UNIT/ML 3 ML VIAL (PYX) SUBCUT SCH ×4 (09:07→21:06)
[2019-09-04] MEDS: DOCUSATE SODIUM 100 MG CAPSULE PO SCH ×2 (09:28→17:17)
[2019-09-04] MEDS: FAMOTIDINE 20 MG TABLET PO SCH ×2 (09:29→21:12)
--- NOTE | 2019-09-04 09:51 | CDI QUERY ---
CDI Query CDI Review: Dear Provider: To better reflect your patients severity of illness, morbidity, and resource utilization Please specify and document in the Progress Notes and Discharge Summary if you are monitoring / treating / evaluating any of the following conditions: Query Clinical indicators Please indicate and include in your Progress Notes as well as the Discharge Summary: Sepsis Present on Admission Sepsis ruled out Sepsis resolved Sepsis 2/2 pneumonia Sepsis unknown etiology Unable to determine Other Per H&P: in the emergency room he was found to have a fever of 103 F with a mild tachycardia and mild hypoxia. His white blood count was mildly elevated at 12,000 however his serum creatinine was 3.61. He was treated as a possible sepsis in the ER The terms probable, suspected, likely, possible or still to be ruled out may be used if you are unable to determine the exact nature of a condition. Thank you for your consideration, Clinical Documentation Physician Advisors IWONA Benjamin RN, BSN RN [email or web address] Office [phone] Office [phone]
--- NOTE | 2019-09-04 12:29 | PDOC PROGRESS REPORT ---
Subjective Progress Note for:: 09/04/19 Subjective:: The patient is sitting up in bed. He appears uncomfortable. The nurse reports that he is still spiking temperatures. He was 102.8 degrees earlier today. He reports very dry mouth and sometimes he coughs and this makes him short of breath. He is still on oxygen by nasal cannula. Reason For Visit: SIRS SYNDROME,ELEVATED SERUM CREATININE Physical Exam Vital Signs: Temp Pulse Resp BP Pulse Ox 102.8 F H 110 H 22 H 134/64 H 91 L 09/04/19 11:09 09/04/19 11:09 09/04/19 11:09 09/04/19 11:09 09/04/19 11:09 Intake & Output 09/03/19 09/04/19 09/05/19 06:59 06:59 06:59 Intake Total 3433 2467 1050 Output Total 0 325 Balance 3433 2142 1050 Weight 82.2 kg 81.6 kg General appearance: PRESENT: cooperative, mild distress, well-developed, well- nourished Head exam: PRESENT: atraumatic, normocephalic Eye exam: PRESENT: conjunctiva pink. ABSENT: scleral icterus Ear exam: PRESENT: normal external ear exam. ABSENT: bleeding, drainage Mouth exam: PRESENT: dry mucosa, tongue midline Teeth exam: PRESENT: poor dentation Neck exam: ABSENT: carotid bruit, JVD, lymphadenopathy Respiratory exam: PRESENT: rales - right base, symmetrical, unlabored. ABSENT: accessory muscle use, rhonchi, tachypnea, wheezes Cardiovascular exam: PRESENT: +S1, +S2, tachycardia - with occ irreg. ABSENT: diastolic murmur, systolic murmur GI/Abdominal exam: PRESENT: normal bowel sounds, soft. ABSENT: distended, guarding, tenderness Rectal exam: PRESENT: deferred Gentrourinary exam: ABSENT: indwelling catheter Extremities exam: ABSENT: pedal edema Musculoskeletal exam: PRESENT: ambulatory, normal inspection. ABSENT: deformity Neurological exam: PRESENT: alert, awake, oriented to person, oriented to place, oriented to time, oriented to situation, CN II-XII grossly intact. ABSENT: altered Psychiatric exam: PRESENT: flat affect. ABSENT: agitated, anxious Focused psych exam: ABSENT: delusional, paranoid, restlessness Skin exam: PRESENT: dry, normal color, warm. ABSENT: rash Results Laboratory Results: 09/04/19 05:32 09/04/19 05:32 09/03/19 09/04/19 09/04/19 12:46 05:32 05:32 WBC 8.6 RBC 3.72 L Hgb 11.6 L Hct 32.8 L MCV 88 MCH 31.2 MCHC 35.4 RDW 14.1 H Plt Count 150 Sodium 133.6 L 134.0 L Potassium 3.9 3.8 Chloride 104 105 Carbon Dioxide 16 L 19 L Anion Gap 14 10 BUN 52 H 48 H Creatinine 4.02 H 3.05 H Est GFR ( Amer) 18 L 25 L Glucose 108 109 Calcium 7.4 L 7.4 L Magnesium 1.7 Triglycerides 119 Cholesterol 70.54 LDL Cholesterol Direct < 30 VLDL Cholesterol 24.0 HDL Cholesterol 21 L TSH 09/04/19 05:32 WBC RBC Hgb Hct MCV MCH MCHC RDW Plt Count Sodium Potassium Chloride Carbon Dioxide Anion Gap BUN Creatinine Est GFR ( Amer) Glucose Calcium Magnesium Triglycerides Cholesterol LDL Cholesterol Direct VLDL Cholesterol HDL Cholesterol TSH 0.94 09/02/19 22:47 Throat Throat Culture - Final NORMAL KATHRINE Impressions: Renal Ultrasound 09/03/19 00:00 IMPRESSION: 1. NORMAL RENAL AND BLADDER ULTRASOUND. Chest X-Ray 09/03/19 08:09 IMPRESSION: Right lower lobe pneumonia. Assessment and Plan - Diagnosis (1) Sepsis due to pneumonia Is this a current diagnosis for this admission?: Yes Plan: 09/04/2019 The patient qualifies for sepsis due to hypoxemia, acute kidney injury and hyperbilirubinemia. Sepsis is secondary to pneumonia. Continue antibiotic therapy. (2) Right lower lobe consolidation Is this a current diagnosis for this admission?: Yes Plan: 09/04/2019 Currently on meropenem and azithromycin. We will recheck his white blood cell count and if it continues to go up consider using alternate antibiotics. Unfortunately with his kidney failure there would like to avoid the vancomycin. (3) Acute respiratory failure with hypoxia Is this a current diagnosis for this admission?: Yes Plan: 09/04/2019 Secondary to pneumonia. Continue oxygen by nasal cannula. Tapered to room air as tolerated. (4) Acute kidney injury superimposed on chronic kidney disease Is this a current diagnosis for this admission?: Yes Plan: 09/04/2019 The patient is being followed by nephrology. I have increased his fluids due to his fever and tachycardia. We will monitor his serum creatinine and BUN with daily labs. Nephrology is seeing the patient as well. (5) Hypokalemia Is this a current diagnosis for this admission?: Yes Plan: 01/06/2020 Potassium is currently normal. Continue to monitor closely and supplement if needed. (6) Hyponatremia Is this a current diagnosis for this admission?: Yes Plan: 09/04/2019 Most likely secondary to the chronic kidney disease but could also be related to the respiratory infection. Continue to monitor with laboratory studies. No fluid restriction at this time. (7) Tobacco use disorder, continuous Is this a current diagnosis for this admission?: Yes Plan: 09/04/2019 Nicotine patches available if needed (8) Leukocytosis Qualifiers: Leukocytosis type: other Qualified Code(s): D72.828 - Other elevated white blood cell count Is this a current diagnosis for this admission?: Yes Plan: 09/04/2019 Left shift with increased neutrophils. Manual bands noted. Leukocytosis secondary to pneumonia. Continue antibiotic therapy. White blood cell count is now normal. (9) Tachycardia Is this a current diagnosis for this admission?: Yes Plan: 09/04/2019 Likely related to fever and infection. The patient may be on the dry side. We will continue IV fluids as well and monitor closely. (10) Hypertension Qualifiers: Hypertension type: essential hypertension Qualified Code(s): I10 - Essential (primary) hypertension Is this a current diagnosis for this admission?: Yes Plan: 09/04/2019 His blood pressure still varies. Initially he did have occasional map less than 70 but not for a prolonged time. Continue IV fluids and hold hydrochlorothiazide and telmisartan. Resume when blood pressure allows. (11) Hyperglycemia due to type 2 diabetes mellitus Qualifiers: Diabetes mellitus senior living insulin use: without senior living use Qualified Code(s): E11.65 - Type 2 diabetes mellitus with hyperglycemia Is this a current diagnosis for this admission?: Yes Plan: 09/04/2019 The patient is on a diabetic diet. He is receiving Accu-Cheks and sliding scale coverage. Hemoglobin A1c was only 5.500. The patient does not excellent job with diet management. (12) Hyperbilirubinemia Is this a current diagnosis for this admission?: Yes Plan: 09/04/2019 Part of the sepsis related to pneumonia. Consider rechecking if clinically ap propriate. (13) Fever Qualifiers: Fever type: due to other condition Qualified Code(s): R50.81 - Fever presenting with conditions classified elsewhere Is this a current diagnosis for this admission?: Yes Plan: 09/04/2019 Secondary to pneumonia. The patient is on antibiotic therapy. He did spike a fever again today. Will monitor closely. IV fluids have been increased. We will continue antibiotics as well. - Plan Summary Summary: Patient will be admitted to the medical floor where he will receive routine supportive and symptomatic cares. He will be treated with high-volume IV fluids utilizing lactated Ringer's solution at 250 mL/h initially. He will receive meropenem 500 mg IV every 8 hours. Blood cultures are pending. He will use Ativan 1 mg IV every 4 hours as needed for restlessness or anxiety. He will receive morphine sulfate 2 to 4 mg IV every 2 hours as needed for pain utilizing a sliding scale for dosing. CBCs, metabolic profiles, hemoglobin A1c's, magnesium levels, lipid profiles, thyroid profiles and additional radiography will be obtained as appropriate. He will initially be treated with a cardiac, prerenal and diabetic restricted diet. A nephrology consultation with Dr. Heredia will be obtained. Patient's medication will need to be adjusted in light of his newly discovered renal disease. Before meals and at bedtime Accu- Cheks will be obtained with sliding scale insulin used to treat hyperglycemia and a hypoglycemic protocol in place. Smoking cessation is advised and counseled briefly at the bedside. A nicotine replacement patch will be available for the patient's use, if desired. - Time Time Spent with patient: 15-24 minutes Medications reviewed and adjusted accordingly: Yes Anticipated discharge: Home
[2019-09-04] MEDS: AZITHROMYCIN 500 MG in DEXTROSE 5%-WATER 250 ML IV SCH (18:23)
--- NOTE | 2019-09-04 19:18 | PDOC PROGRESS REPORT ---
Subjective Progress Note for:: 09/04/19 Subjective:: Patient still spiking temperature. He tells me though that he feels better but is slightly short of breath. Recorded urine output was only 325 mL although the patient said he is making urine. So far he is +5.5 L for the past couple of days. He continues to have nonproductive cough. He has no other complaints. Reason For Visit: SIRS SYNDROME,ELEVATED SERUM CREATININE Physical Exam Vital Signs: Temp Pulse Resp BP Pulse Ox 100 F 104 H 16 107/58 L 91 L 09/04/19 08:37 09/04/19 07:41 09/04/19 07:41 09/04/19 07:41 09/04/19 07:41 Intake & Output 09/03/19 09/04/19 09/05/19 06:59 06:59 06:59 Intake Total 3433 2467 Output Total 0 325 Balance 3433 2142 Weight 82.2 kg 81.6 kg Exam: General appearance: PRESENT: no acute distress, cooperative, well-developed, well-nourished Head exam: PRESENT: atraumatic, normocephalic Eye exam: PRESENT: conjunctiva pink, PERRLA. ABSENT: scleral icterus Neck exam: ABSENT: JVD Respiratory exam: PRESENT: Diminished breath sounds. ABSENT: crackles, rales, rhonchi, unlabored, wheezes Cardiovascular exam: PRESENT: Regular rate rhythm -+S1, +S2. ABSENT: diastolic murmur, systolic murmur GI/Abdominal exam: PRESENT: normal bowel sounds, soft. ABSENT: guarding, mass, tenderness Extremities exam: ABSENT: No edema Neurological exam: PRESENT: alert, awake, oriented to person, place and time. Skin exam: PRESENT: dry, warm, Results Laboratory Results: 09/04/19 05:32 09/04/19 05:32 09/03/19 09/03/19 09/03/19 09:24 09:24 12:46 WBC 9.1 RBC 3.64 L Hgb 11.4 L Hct 32.3 L MCV 89 MCH 31.4 MCHC 35.3 RDW 13.7 Plt Count 152 Sodium 132.0 L 133.6 L Potassium 3.7 3.9 Chloride 105 104 Carbon Dioxide 17 L 16 L Anion Gap 10 14 BUN 49 H 52 H Creatinine 4.23 H 4.02 H Est GFR ( Amer) 17 L 18 L Glucose 111 H 108 Calcium 7.2 L 7.4 L Magnesium Triglycerides Cholesterol LDL Cholesterol Direct VLDL Cholesterol HDL Cholesterol TSH 09/04/19 09/04/19 09/04/19 05:32 05:32 05:32 WBC 8.6 RBC 3.72 L Hgb 11.6 L Hct 32.8 L MCV 88 MCH 31.2 MCHC 35.4 RDW 14.1 H Plt Count 150 Sodium 134.0 L Potassium 3.8 Chloride 105 Carbon Dioxide 19 L Anion Gap 10 BUN 48 H Creatinine 3.05 H Est GFR ( Amer) 25 L Glucose 109 Calcium 7.4 L Magnesium 1.7 Triglycerides 119 Cholesterol 70.54 LDL Cholesterol Direct < 30 VLDL Cholesterol 24.0 HDL Cholesterol 21 L TSH 0.94 Impressions: Renal Ultrasound 09/03/19 00:00 IMPRESSION: 1. NORMAL RENAL AND BLADDER ULTRASOUND. Chest X-Ray 09/03/19 08:09 IMPRESSION: Right lower lobe pneumonia. Assessment & Plan - Diagnosis (1) OMER (acute kidney injury) Is this a current diagnosis for this admission?: Yes Plan: Patient still relatively oliguric based on what is recorded. I think the patient is still volume depleted at this point. Continue the same IV fluids at the same rate. His kidney function is actually slightly better today than yesterday. There is no indication for any renal replacement therapy at this time. Continue to monitor kidney function. Still awaiting records from Dr. Frias to determine his baseline kidney function. His urine microalbumin to creatinine ratio is currently still pending. (2) Right lower lobe pneumonia Is this a current diagnosis for this admission?: Yes Plan: On IV azithromycin and IV meropenem per hospitalist service. (3) SIRS (systemic inflammatory response syndrome) Is this a current diagnosis for this admission?: Yes (4) Metabolic acidosis Is this a current diagnosis for this admission?: Yes Plan: Slightly improved today. (5) Hyponatremia Is this a current diagnosis for this admission?: Yes Plan: Slowly improving with volume repletion. I think this is due to hypovolemia. (6) Hypocalcemia Is this a current diagnosis for this admission?: Yes Plan: Start calcium carbonate 600 mg twice daily. (7) Hypertension Qualifiers: Hypertension type: essential hypertension Qualified Code(s): I10 - E ssential (primary) hypertension Is this a current diagnosis for this admission?: Yes Plan: Improving. Continue to hold hydrochlorothiazide and telmisartan. (8) Diabetes mellitus type 2 in nonobese Is this a current diagnosis for this admission?: Yes - Time Time with patient: 15-25 minutes
[2019-09-04] MEDS: CALCIUM CARBONATE 600 MG TABLET PO SCH (21:12)
[2019-09-05] MEDS: ACETAMINOPHEN 325 MG TABLET PO PRN ×4 (01:32→23:54)
[2019-09-05 05:14] LABS: HEMATOCRIT 31.7 % (37.9-51.0); MEAN CORPUSCULAR HEMOGLOBIN 30.6 pg (27.0-33.4); MEAN CORPUSCULAR HGB CONC 34.6 g/dL (32.0-36.0); MEAN CORPUSCULAR VOLUME 88 fl (80-97); PLATELET COUNT 169 10^3/uL (150-450); RED BLOOD COUNT 3.59 10^6/uL (4.35-5.55); WHITE BLOOD COUNT 13.3 10^3/uL (4.0-10.5)
[2019-09-05 05:35] LABS: ANION GAP 10 (5-19); BLOOD UREA NITROGEN 36 mg/dL (7-20); CALCIUM 7.6 mg/dL (8.4-10.2); CARBON DIOXIDE 18 mmol/L (22-30); CHLORIDE 109 mmol/L (98-107); GLUCOSE 95 mg/dL (75-110); POTASSIUM 3.4 mmol/L (3.6-5.0)
[2019-09-05] MEDS: NORMAL SALINE 1000 ML 1,000 ML IV PRN ×2 (06:11→15:23)
[2019-09-05] MEDS: MEROPENEM 500 MG in NORMAL SALINE 50 ML IV SCH (06:14)
[2019-09-05] MEDS: HEPARIN SOD (PORCINE) 5,000 UNIT/ML 1 ML VIAL SUBCUT SCH ×3 (06:14→21:26)
[2019-09-05 09:37] LABS: CREATININE URINE 109.5 mg/dL (Not Estab.)
[2019-09-05] MEDS: INSULIN REG, HUMAN 100 UNIT/ML 3 ML VIAL (PYX) SUBCUT SCH ×4 (10:05→21:28)
[2019-09-05] MEDS: ASPIRIN 325 MG TABLET, ENT COATED PO SCH (10:07)
[2019-09-05] MEDS: CALCIUM CARBONATE 600 MG TABLET PO SCH ×2 (10:07→17:40)
[2019-09-05] MEDS: DOCUSATE SODIUM 100 MG CAPSULE PO SCH ×2 (10:07→17:41)
[2019-09-05] MEDS: FAMOTIDINE 20 MG TABLET PO SCH ×2 (10:07→21:26)
--- NOTE | 2019-09-05 14:29 | PDOC PROGRESS REPORT ---
Subjective Progress Note for:: 09/05/19 Subjective:: The patient is still spiking temperatures. He still has a cough. He still gets short of breath with minimal exertion and requires oxygen. Reason For Visit: SIRS SYNDROME,ELEVATED SERUM CREATININE Physical Exam Vital Signs: Temp Pulse Resp BP Pulse Ox 100.5 F H 121 H 20 154/81 H 92 09/05/19 11:50 09/05/19 11:50 09/05/19 11:50 09/05/19 11:50 09/05/19 11:50 Intake & Output 09/04/19 09/05/19 09/06/19 06:59 06:59 06:59 Intake Total 2467 3650 150 Output Total 325 1875 300 Balance 2142 1775 -150 Weight 81.6 kg 82.1 kg General appearance: PRESENT: cooperative, mild distress, well-developed Head exam: PRESENT: atraumatic, normocephalic Ear exam: PRESENT: normal external ear exam. ABSENT: bleeding, drainage Mouth exam: PRESENT: dry mucosa, tongue midline Respiratory exam: PRESENT: decreased breath sounds - On the right, rhonchi, symmetrical, unlabored. ABSENT: accessory muscle use, prolonged expiratory phas, tachypnea, wheezes Cardiovascular exam: PRESENT: RRR, +S1, +S2. ABSENT: diastolic murmur, irregular rhythm, systolic murmur GI/Abdominal exam: PRESENT: normal bowel sounds, soft. ABSENT: distended, guarding, tenderness Rectal exam: PRESENT: deferred Gentrourinary exam: ABSENT: indwelling catheter Extremities exam: ABSENT: pedal edema Musculoskeletal exam: PRESENT: ambulatory, normal inspection. ABSENT: deformity Neurological exam: PRESENT: alert, awake, oriented to person, oriented to place, oriented to time, oriented to situation, CN II-XII grossly intact. ABSENT: altered, motor sensory deficit Psychiatric exam: PRESENT: appropriate affect. ABSENT: agitated, anxious Focused psych exam: ABSENT: delusional, paranoid, restlessness Skin exam: PRESENT: dry, normal color, warm. ABSENT: rash Results Laboratory Results: 09/05/19 04:20 09/05/19 04:20 09/05/19 09/05/19 04:20 04:20 WBC 13.3 H RBC 3.59 L Hgb 11.0 L Hct 31.7 L MCV 88 MCH 30.6 MCHC 34.6 RDW 14.0 Plt Count 169 Sodium 136.5 L Potassium 3.4 L Chloride 109 H Carbon Dioxide 18 L Anion Gap 10 BUN 36 H Creatinine 2.12 H Est GFR ( Amer) 38 L Glucose 95 Calcium 7.6 L Magnesium 2.1 Impressions: Renal Ultrasound 09/03/19 00:00 IMPRESSION: 1. NORMAL RENAL AND BLADDER ULTRASOUND. Chest X-Ray 09/03/19 08:09 IMPRESSION: Right lower lobe pneumonia. Assessment and Plan - Diagnosis (1) Sepsis due to pneumonia Is this a current diagnosis for this admission?: Yes Plan: 09/04/2019 The patient qualifies for sepsis due to hypoxemia, acute kidney injury and hyperbilirubinemia. Sepsis is secondary to pneumonia. Continue antibiotic therapy. 09/05/2019 Sepsis resolved (2) Right lower lobe consolidation Is this a current diagnosis for this admission?: Yes Plan: 09/04/2019 Currently on meropenem and azithromycin. We will recheck his white blood cell count and if it continues to go up consider using alternate antibiotics. Unfortunately with his kidney failure there would like to avoid the vancomycin. 09/05/2019 The patient's white count has not significantly improved and he is still spiking temperatures. Because of this I am changing his antibiotic therapy. I am discontinuing the meropenem and starting cefepime adjusted for his renal function. We will continue to monitor closely. Chest x-ray shows no improvement in the right lower lobe pneumonia. (3) Acute respiratory failure with hypoxia Is this a current diagnosis for this admission?: Yes Plan: 09/04/2019 Secondary to pneumonia. Continue oxygen by nasal cannula. Tapered to room air as tolerated. 09/05/2019 The patient continues to require oxygen supplementation. Tapered to room air when appropriate. (4) Acute kidney injury superimposed on chronic kidney disease Is this a current diagnosis for this admission?: Yes Plan: 09/04/2019 The patient is being followed by nephrology. I have increased his fluids due to his fever and tachycardia. We will monitor his serum creatinine and BUN with daily labs. Nephrology is seeing the patient as well. 09/05/2019 Serum creatinine is slowly improving. His IV fluids will remain at the higher rate. Recheck laboratory studies tomorrow. (5) Hypokalemia Is this a current diagnosis for this admission?: Yes Plan: 09/04/2019 Potassium is currently normal. Continue to monitor closely and supplement if needed. 09/05/2019 Serum potassium has dropped to just below the lower limit normal. I have started oral potassium supplementation. (6) Hyponatremia Is this a current diagnosis for this admission?: Yes Plan: 09/04/2019 Most likely secondary to the chronic kidney disease but could also be related to the respiratory infection. Continue to monitor with laboratory studies. No fluid restriction at this time. 09/05/2019 Continues to improve daily. Currently 136.5 with the lower limit normal 137 (7) Tobacco use disorder, continuous Is this a current diagnosis for this admission?: Yes Plan: 09/04/2019 Nicotine patches available if needed (8) Leukocytosis Qualifiers: Leukocytosis type: other Qualified Code(s): D72.828 - Other elevated white blood cell count Is this a current diagnosis for this admission?: Yes Plan: 09/04/2019 Left shift with increased neutrophils. Manual bands noted. Leukocytosis secondary to pneumonia. Continue antibiotic therapy. White blood cell count is now normal. 09/05/2019 With the change in antibiotic therapy I expect the white blood cell count to improve. (9) Tachycardia Is this a current diagnosis for this admission?: Yes Plan: 09/04/2019 Likely related to fever and infection. The patient may be on the dry side. We will continue IV fluids as well and monitor closely. 09/05/2019 This is likely secondary to the infection. We will continue IV fluids and I have started low-dose metoprolol. (10) Hypertension Qualifiers: Hypertension type: essential hypertension Qualified Code(s): I10 - Essential (primary) hypertension Is this a current diagnosis for this admission?: Yes Plan: 09/04/2019 His blood pressure still varies. Initially he did have occasional map less than 70 but not for a prolonged time. Continue IV fluids and hold hydrochlorothiazide and telmisartan. Resume when blood pressure allows. 09/05/2019 Still exhibits wide fluctuations in blood pressure. We will continue to monitor with the addition of metoprolol. (11) Hyperglycemia due to type 2 diabetes mellitus Qualifiers: Diabetes mellitus medical terminologist insulin use: without group home use Qualified Code(s): E11.65 - Type 2 diabetes mellitus with hyperglycemia Is this a current diagnosis for this admission?: Yes Plan: 09/04/2019 The patient is on a diabetic diet. He is receiving Accu-Cheks and sliding scale coverage. Hemoglobin A1c was only 5.500. The patient does not excellent job with diet management. 09/05/2019 With Accu-Cheks and sliding scale coverage the patient exhibits excellent glucose control. (12) Hyperbilirubinemia Is this a current diagnosis for this admission?: Yes Plan: 09/04/2019 Part of the sepsis related to pneumonia. Consider rechecking if clinically appropriate. (13) Fever Qualifiers: Fever type: due to other condition Qualified Code(s): R50.81 - Fever presenting with conditions classified elsewhere Is this a current diagnosis for this admission?: Yes Plan: 09/04/2019 Secondary to pneumonia. The patient is on antibiotic therapy. He did spike a fever again today. Will monitor closely. IV fluids have been increased. We wi ll continue antibiotics as well. 09/05/2019 The T-max is slightly better today. Continue Tylenol. I expect improvement with the change in antibiotic therapy. - Plan Summary Summary: Patient will be admitted to the medical floor where he will receive routine supportive and symptomatic cares. He will be treated with high-volume IV fluids utilizing lactated Ringer's solution at 250 mL/h initially. He will receive meropenem 500 mg IV every 8 hours. Blood cultures are pending. He will use Ativan 1 mg IV every 4 hours as needed for restlessness or anxiety. He will receive morphine sulfate 2 to 4 mg IV every 2 hours as needed for pain utilizing a sliding scale for dosing. CBCs, metabolic profiles, hemoglobin A1c's, magnesium levels, lipid profiles, thyroid profiles and additional radiography will be obtained as appropriate. He will initially be treated with a cardiac, prerenal and diabetic restricted diet. A nephrology consultation with Dr. Mary shepard will be obtained. Patient's medication will need to be adjusted in light of his newly discovered renal disease. Before meals and at bedtime Accu-Cheks will be obtained with sliding scale insulin used to treat hyperglycemia and a hypoglycemic protocol in place. Smoking cessation is advised and counseled briefly at the bedside. A nicotine replacement patch will be available for the patient's use, if desired. - Time Time Spent with patient: 15-24 minutes Medications reviewed and adjusted accordingly: Yes Anticipated discharge: Home Within: within 72 hours
--- NOTE | 2019-09-05 15:18 | RADIOLOGY REPORT (SQ) ---
EXAM DESCRIPTION: CHEST 2 VIEWS IMAGES COMPLETED DATE/TIME: 09/05/2019 3:00 pm REASON FOR STUDY: Pneumonia COMPARISON: Chest films 09/03/2019, 05/13/2008 EXAM PARAMETERS: NUMBER OF VIEWS: two views TECHNIQUE: Digital Frontal and Lateral radiographic views of the chest acquired. RADIATION DOSE: NA LIMITATIONS: none FINDINGS: LUNGS AND PLEURA: Persistent right lower lobe consolidation from pneumonia. This is simil ar in extent compared to 09/03/2019. No gross right pleural effusion or pneumothorax. Left hemithorax unremarkable MEDIASTINUM AND HILAR STRUCTURES: No masses or contour abnormalities. HEART AND VASCULAR STRUCTURES: Heart normal size. No evidence for failure. BONES: No acute findings. HARDWARE: None in the chest. OTHER: No other significant finding. IMPRESSION: Persistent right lower lobe pneumonia, similar compared to 09/03/2019 TECHNICAL DOCUMENTATION: JOB ID: [id number] 2010 [employer]- All Rights Reserved Reading location - IP/workstation name: [id number]
[2019-09-05] MEDS: CEFEPIME 1 GM/D5W RTU 1 GM/50 ML RTUPB IV SCH (15:22)
[2019-09-05] MEDS: METOPROLOL TARTRATE 25 MG TABLET PO SCH ×2 (15:23→21:25)
[2019-09-05] MEDS: AZITHROMYCIN 500 MG in DEXTROSE 5%-WATER 250 ML IV SCH (17:41)
[2019-09-05] MEDS: POTASSIUM CHLORIDE 10 MEQ TABLET.ER PO SCH (21:25)
[2019-09-06] MEDS: NORMAL SALINE 1000 ML 1,000 ML IV PRN ×2 (01:44→17:55)
[2019-09-06] MEDS: HEPARIN SOD (PORCINE) 5,000 UNIT/ML 1 ML VIAL SUBCUT SCH ×3 (05:17→21:41)
[2019-09-06 05:57] LABS: HEMATOCRIT 30.2 % (37.9-51.0); HEMOGLOBIN 10.5 g/dL (13.5-17.0); MEAN CORPUSCULAR HEMOGLOBIN 30.6 pg (27.0-33.4); MEAN CORPUSCULAR HGB CONC 34.6 g/dL (32.0-36.0); MEAN CORPUSCULAR VOLUME 89 fl (80-97); PLATELET COUNT 168 10^3/uL (150-450); RED BLOOD COUNT 3.41 10^6/uL (4.35-5.55); RED CELL DISTRIBUTION WIDTH 14.1 % (11.5-14.0); WHITE BLOOD COUNT 15.4 10^3/uL (4.0-10.5)
[2019-09-06 06:23] LABS: ANION GAP 8 (5-19); BLOOD UREA NITROGEN 36 mg/dL (7-20); CALCIUM 7.8 mg/dL (8.4-10.2); CARBON DIOXIDE 19 mmol/L (22-30); CHLORIDE 111 mmol/L (98-107); GLUCOSE 95 mg/dL (75-110); POTASSIUM 3.6 mmol/L (3.6-5.0)
--- NOTE | 2019-09-06 08:49 | PDOC PROGRESS REPORT ---
Subjective Progress Note for:: 09/06/19 Subjective:: Patient is resting in bed. He feels that his temperatures are improving. He does report that he is mobilizing more secretions. Reason For Visit: SIRS SYNDROME,ELEVATED SERUM CREATININE Physical Exam Vital Signs: Temp Pulse Resp BP Pulse Ox 99.5 F 101 H 18 136/83 H 96 09/06/19 07:44 09/06/19 07:44 09/06/19 07:44 09/06/19 07:44 09/06/19 07:44 Intake & Output 09/05/19 09/06/19 09/07/19 06:59 06:59 06:59 Intake Total 3650 2650 Output Total 1875 1430 Balance 1775 1220 Weight 82.1 kg 79.2 kg General appearance: PRESENT: no acute distress, cooperative, well-developed, well-nourished Head exam: PRESENT: atraumatic, normocephalic Eye exam: PRESENT: conjunctiva pink, EOMI. ABSENT: scleral icterus Ear exam: PRESENT: normal external ear exam. ABSENT: bleeding, drainage Mouth exam: PRESENT: moist, tongue midline Respiratory exam: PRESENT: decreased breath sounds - Right base, rhonchi - On the right, symmetrical, unlabored. ABSENT: prolonged expiratory phas, rales, retraction, tachypnea, wheezes Cardiovascular exam: PRESENT: RRR, +S1, +S2. ABSENT: diastolic murmur, irregular rhythm, systolic murmur GI/Abdominal exam: PRESENT: normal bowel sounds, soft. ABSENT: distended, guarding, tenderness Rectal exam: PRESENT: deferred Gentrourinary exam: ABSENT: indwelling catheter Extremities exam: ABSENT: pedal edema Musculoskeletal exam: PRESENT: ambulatory, full ROM, normal inspection. ABSENT: deformity Neurological exam: PRESENT: alert, awake, oriented to person, oriented to place, oriented to time, oriented to situation, CN II-XII grossly intact. ABSENT: altered, motor sensory deficit Psychiatric exam: PRESENT: appropriate affect. ABSENT: agitated, anxious Focused psych exam: ABSENT: delusional, paranoid, restlessness Skin exam: PRESENT: dry, normal color, warm. ABSENT: rash Results Laboratory Results: 09/06/19 05:24 09/06/19 05:24 09/06/19 09/06/19 05:24 05:24 WBC 15.4 H RBC 3.41 L Hgb 10.5 L Hct 30.2 L MCV 89 MCH 30.6 MCHC 34.6 RDW 14.1 H Plt Count 168 Sodium 137.7 Potassium 3.6 Chloride 111 H Carbon Dioxide 19 L Anion Gap 8 BUN 36 H Creatinine 1.76 H Est GFR ( Amer) 47 L Glucose 95 Calcium 7.8 L Magnesium 2.4 H Impressions: Renal Ultrasound 09/03/19 00:00 IMPRESSION: 1. NORMAL RENAL AND BLADDER ULTRASOUND. Chest X-Ray 09/05/19 00:00 IMPRESSION: Persistent right lower lobe pneumonia, similar compared to 09/03/2019 Assessment and Plan - Diagnosis (1) Right lower lobe consolidation Is this a current diagnosis for this admission?: Yes Plan: 09/04/2019 Currently on meropenem and azithromycin. We will recheck his white blood cell count and if it continues to go up consider using alternate antibiotics. Unfortunately with his kidney failure there would like to avoid the vancomycin. 09/05/2019 The patient's white count has not significantly improved and he is still spiking temperatures. Because of this I am changing his antibiotic therapy. I am discontinuing the meropenem and starting cefepime adjusted for his renal function. We will continue to monitor closely. Chest x-ray shows no improvement in the right lower lobe pneumonia. 09/06/2019 The change to cefepime appears to be helping. The patient reports loosening secretions in his lungs. His fever has not spiked as high as yesterday. His cough is productive of brownish sputum. Because he has been on antibiotic therapy obtaining a culture is not clinically indicated. We will continue the cefepime and azithromycin at this time. (2) Acute respiratory failure with hypoxia Is this a current diagnosis for this admission?: Yes Plan: 09/04/2019 Secondary to pneumonia. Continue oxygen by nasal cannula. Tapered to room air as tolerated. 09/05/2019 The patient continues to require oxygen supplementation. Tapered to room air w hen appropriate. 09/06/2019 New antibiotic as above. No COPD therefore no inhalers at this time. We may consider nebulizer treatments to help break up the secretions. We will taper his oxygen to room air. Nebulizers may help this. The decision will be based on his clinical course. (3) Acute kidney injury superimposed on chronic kidney disease Is this a current diagnosis for this admission?: Yes Plan: 09/04/2019 The patient is being followed by nephrology. I have increased his fluids due to his fever and tachycardia. We will monitor his serum creatinine and BUN with daily labs. Nephrology is seeing the patient as well. 09/05/2019 Serum creatinine is slowly improving. His IV fluids will remain at the higher rate. Recheck laboratory studies tomorrow. 09/06/2019 Kidney function continues to improve. Serum creatinine now less than 2.0. Recheck laboratory studies tomorrow. (4) Hypokalemia Is this a current diagnosis for this admission?: Yes Plan: 09/04/2019 Potassium is currently normal. Continue to monitor closely and supplement if needed. 09/05/2019 Serum potassium has dropped to just below the lower limit normal. I have started oral potassium supplementation. 09/06/2019 Serum potassium normal. Continue oral supplement. (5) Hyponatremia Is this a current diagnosis for this admission?: Yes Plan: 09/04/2019 Most likely secondary to the chronic kidney disease but could also be related to the respiratory infection. Continue to monitor with laboratory studies. No fluid restriction at this time. 09/05/2019 Continues to improve daily. Currently 136.5 with the lower limit normal 137 09/06/2019 As renal function has improved hyponatremia is now corrected and resolved (6) Tobacco use disorder, continuous Is this a current diagnosis for this admission?: Yes Plan: 09/04/2019 Nicotine patches available if needed 09/06/2019 Continue to encourage tobacco cessation (7) Leukocytosis Qualifiers: Leukocytosis type: other Qualified Code(s): D72.828 - Other elevated white blood cell count Is this a current diagnosis for this admission?: Yes Plan: 09/04/2019 Left shift with increased neutrophils. Manual bands noted. Leukocytosis secondary to pneumonia. Continue antibiotic therapy. White blood cell count is now normal. 09/05/2019 With the change in antibiotic therapy I expect the white blood cell count to improve. 09/06/2019 His white blood cell count increased slightly again today. His counts have been variable. We will reassess tomorrow (8) Tachycardia Is this a current diagnosis for this admission?: Yes Plan: 09/04/2019 Likely related to fever and infection. The patient may be on the dry side. We will continue IV fluids as well and monitor closely. 09/05/2019 This is likely secondary to the infection. We will continue IV fluids and I have started low-dose metoprolol. 09/06/2019 Low-dose metoprolol effective. Tachycardia resolved. (9) Hypertension Qualifiers: Hypertension type: essential hypertension Qualified Code(s): I10 - Essential (primary) hypertension Is this a current diagnosis for this admission?: Yes Plan: 09/04/2019 His blood pressure still varies. Initially he did have occasional map less than 70 but not for a prolonged time. Continue IV fluids and hold hydrochlorothiazide and telmisartan. Resume when blood pressure allows. 09/05/2019 Still exhibits wide fluctuations in blood pressure. We will continue to monitor with the addition of metoprolol. 09/06/2019 Slightly better but still variable. Continue to monitor. (10) Hyperglycemia due to type 2 diabetes mellitus Qualifiers: Diabetes mellitus mica layer insulin use: without retirement use Qualified Code(s): E11.65 - Type 2 diabetes mellitus with hyperglycemia Is this a current diagnosis for this admission?: Yes Plan: 09/04/2019 The patient is on a diabetic diet. He is receiving Accu-Cheks and sliding scale coverage. Hemoglobin A1c was only 5.500. The patient does not excellent job with diet management. 09/05/2019 With Accu-Cheks and sliding scale coverage the patient exhibits excellent glucose control. 09/06/2019 Continue current regimen (11) Hyperbilirubinemia Is this a current diagnosis for this admission?: Yes Plan: 09/04/2019 Part of the sepsis related to pneumonia. Consider rechecking if clinically appropriate. (12) Fever Qualifiers: Fever type: due to other condition Qualified Code(s): R50.81 - Fever presenting with conditions classified elsewhere Is this a current diagnosis for this admission?: Yes Plan: 09/04/2019 Secondary to pneumonia. The patient is on antibiotic therapy. He did spike a fever again today. Will monitor closely. IV fluids have been increased. We will continue antibiotics as well. 09/05/2019 The T-max is slightly better today. Continue Tylenol. I expect improvement with the change in antibiotic therapy. 09/06/2019 T-max at midnight 102.6. Temperature has since worked down and is currently normal. (13) Sepsis due to pneumonia Is this a current diagnosis for this admission?: Yes Plan: 09/04/2019 The patient qualifies for sepsis due to hypoxemia, acute kidney injury and hyperbilirubinemia. Sepsis is secondary to pneumonia. Continue antibiotic therapy. 09/05/2019 Sepsis resolved - Plan Summary Summary: Patient will be admitted to the medical floor where he will receive routine supportive and symptomatic cares. He will be treated with high-volume IV fluids utilizing lactated Ringer's solution at 250 mL/h initially. He will receive meropenem 500 mg IV every 8 hours. Blood cultures are pending. He will use Ativan 1 mg IV every 4 hours as needed for restlessness or anxiety. He will receive morphine sulfate 2 to 4 mg IV every 2 hours as needed for pain utilizing a sliding scale for dosing. CBCs, metabolic profiles, hemoglobin A1c's, magnesium levels, lipid profiles, thyroid profiles and additional radiography will be obtained as appropriate. He will initially be treated with a cardiac, prerenal and diabetic restricted diet. A nephrology consultation with Dr. Heredia will be obtained. Patient's medication will need to be adjusted in light of his newly discovered renal disease. Before meals and at bedtime Accu- Cheks will be obtained with sliding scale insulin used to treat hyperglycemia and a hypoglycemic protocol in place. Smoking cessation is advised and counseled briefly at the bedside. A nicotine replacement patch will be available for the patient's use, if desired. - Time Time Spent with patient: 15-24 minutes Medications reviewed and adjusted accordingly: Yes Anticipated discharge: Home Within: within 48 hours
[2019-09-06] MEDS: INSULIN REG, HUMAN 100 UNIT/ML 3 ML VIAL (PYX) SUBCUT SCH ×4 (09:59→21:41)
[2019-09-06] MEDS: CEFEPIME 1 GM/D5W RTU 1 GM/50 ML RTUPB IV SCH (10:05)
[2019-09-06] MEDS: METOPROLOL TARTRATE 25 MG TABLET PO SCH ×2 (10:06→21:41)
[2019-09-06] MEDS: ASPIRIN 325 MG TABLET, ENT COATED PO SCH (10:06)
[2019-09-06] MEDS: CALCIUM CARBONATE 600 MG TABLET PO SCH ×2 (10:06→17:52)
[2019-09-06] MEDS: POTASSIUM CHLORIDE 10 MEQ TABLET.ER PO SCH ×2 (10:06→21:41)
[2019-09-06] MEDS: FAMOTIDINE 20 MG TABLET PO SCH ×2 (10:06→21:41)
[2019-09-06] MEDS: DOCUSATE SODIUM 100 MG CAPSULE PO SCH ×2 (10:06→17:52)
[2019-09-06] MEDS: GUAIFENESIN 600 MG TABLET.SA PO SCH ×2 (10:06→21:41)
[2019-09-06] MEDS: AZITHROMYCIN 500 MG in DEXTROSE 5%-WATER 250 ML IV SCH (17:52)
[2019-09-07] MEDS: NORMAL SALINE 1000 ML 1,000 ML IV PRN ×3 (03:14→23:50)
[2019-09-07] MEDS: HEPARIN SOD (PORCINE) 5,000 UNIT/ML 1 ML VIAL SUBCUT SCH ×3 (05:30→21:23)
[2019-09-07] MEDS: GUAIFENESIN SYRP 200 MG/10 ML UDC PO PRN ×2 (05:32→19:50)
[2019-09-07 06:07] LABS: ABSOLUTE EOSINOPHILS # (AUTO) 0.2 10^3/uL (0.0-0.6); ABSOLUTE LYMPHOCYTES (AUTO) 0.9 10^3/uL (0.5-4.7); ABSOLUTE MONOCYTES (AUTO) 0.9 10^3/uL (0.1-1.4); ABSOLUTE NEUT (AUTO) 7.2 10^3/uL (1.7-8.2); BASOPHILS % (AUTO) 0.3 % (0-2); EOSINOPHILS % (AUTO) 1.7 % (0-6); HEMATOCRIT 28.7 % (37.9-51.0); LYMPHOCYTES % (AUTO) 10.1 % (13-45); MEAN CORPUSCULAR HEMOGLOBIN 30.7 pg (27.0-33.4); MEAN CORPUSCULAR HGB CONC 34.8 g/dL (32.0-36.0); MEAN CORPUSCULAR VOLUME 88 fl (80-97); MONOCYTES % (AUTO) 10.1 % (3-13); PLATELET COUNT 174 10^3/uL (150-450); RED BLOOD COUNT 3.25 10^6/uL (4.35-5.55); RED CELL DISTRIBUTION WIDTH 14.3 % (11.5-14.0); SEGMENTED NEUTROPHILS % (AUTO) 77.8 % (42-78); TOTAL CELLS COUNTED % (AUTO) 100 %; WHITE BLOOD COUNT 9.2 10^3/uL (4.0-10.5)
[2019-09-07 06:34] LABS: ALBUMIN 2.1 g/dL (3.5-5.0); ANION GAP 7 (5-19); BLOOD UREA NITROGEN 35 mg/dL (7-20); CALCIUM 7.7 mg/dL (8.4-10.2); CARBON DIOXIDE 17 mmol/L (22-30); CHLORIDE 114 mmol/L (98-107); GLUCOSE 99 mg/dL (75-110); PHOSPHORUS 3.6 mg/dL (2.5-4.5); POTASSIUM 3.9 mmol/L (3.6-5.0)
[2019-09-07] MEDS: INSULIN REG, HUMAN 100 UNIT/ML 3 ML VIAL (PYX) SUBCUT SCH ×4 (08:35→22:35)
[2019-09-07] MEDS: CALCIUM CARBONATE 600 MG/VITAMIN D3 400 UNIT TABLET PO SCH ×2 (09:25→17:32)
[2019-09-07] MEDS: DOCUSATE SODIUM 100 MG CAPSULE PO SCH ×2 (09:25→17:32)
[2019-09-07] MEDS: FAMOTIDINE 20 MG TABLET PO SCH ×2 (09:25→21:22)
[2019-09-07] MEDS: POTASSIUM CHLORIDE 10 MEQ TABLET.ER PO SCH ×2 (09:25→21:21)
[2019-09-07] MEDS: GUAIFENESIN 600 MG TABLET.SA PO SCH ×2 (09:25→21:22)
[2019-09-07] MEDS: ASPIRIN 325 MG TABLET, ENT COATED PO SCH (09:25)
[2019-09-07] MEDS: CALCIUM CARBONATE 600 MG TABLET PO SCH ×2 (09:25→17:32)
[2019-09-07] MEDS: METOPROLOL TARTRATE 25 MG TABLET PO SCH ×2 (09:26→21:21)
[2019-09-07] MEDS: CEFEPIME 1 GM/D5W RTU 1 GM/50 ML RTUPB IV SCH (10:30)
[2019-09-07] MEDS: SODIUM BICARBONATE 650 MG TABLET PO SCH ×2 (11:37→21:21)
--- NOTE | 2019-09-07 13:17 | PDOC PROGRESS REPORT ---
Subjective Progress Note for:: 09/07/19 Subjective:: Patient has been doing well over the weekend. He is making a good amount of urine output. He reports that is feeling much better. He said he still coughing but it is a lot better. He does not have any complaints and would like to go home soon. Reason For Visit: SIRS SYNDROME,ELEVATED SERUM CREATININE Physical Exam Vital Signs: Temp Pulse Resp BP Pulse Ox 98.3 F 73 17 149/70 H 95 09/07/19 08:29 09/07/19 08:29 09/07/19 08:29 09/07/19 08:29 09/07/19 08:29 Intake & Output 09/06/19 09/07/19 09/08/19 06:59 06:59 06:59 Intake Total 2650 3440 Output Total 1430 2100 Balance 1220 1340 Weight 79.2 kg 79.2 kg Exam: General appearance: PRESENT: no acute distress, cooperative, well-developed, well-nourished Head exam: PRESENT: atraumatic, normocephalic Eye exam: PRESENT: conjunctiva slightly pale, PERRLA. ABSENT: scleral icterus Neck exam: ABSENT: JVD Respiratory exam: PRESENT: Diminished breath sounds. ABSENT: crackles, rales, rhonchi, unlabored, wheezes Cardiovascular exam: PRESENT: Regular rate rhythm -+S1, +S2. ABSENT: diastolic murmur, systolic murmur GI/Abdominal exam: PRESENT: normal bowel sounds, soft. ABSENT: guarding, mass, tenderness Extremities exam: ABSENT: No edema Neurological exam: PRESENT: alert, awake, oriented to person, place and time. Skin exam: PRESENT: dry, warm, Results Laboratory Results: 09/07/19 04:42 09/07/19 04:42 09/07/19 09/07/19 04:42 04:42 WBC 9.2 RBC 3.25 L Hgb 10.0 L Hct 28.7 L MCV 88 MCH 30.7 MCHC 34.8 RDW 14.3 H Plt Count 174 Seg Neutrophils % 77.8 Sodium 138.0 Potassium 3.9 Chloride 114 H Carbon Dioxide 17 L Anion Gap 7 BUN 35 H Creatinine 1.36 H Est GFR ( Amer) > 60 Glucose 99 Calcium 7.7 L Phosphorus 3.6 Magnesium 2.2 Albumin 2.1 L Impressions: Renal Ultrasound 09/03/19 00:00 IMPRESSION: 1. NORMAL RENAL AND BLADDER ULTRASOUND. Chest X-Ray 09/05/19 00:00 IMPRESSION: Persistent right lower lobe pneumonia, similar compared to 09/03/2019 Assessment & Plan - Diagnosis (1) OMER (acute kidney injury) Is this a current diagnosis for this admission?: Yes Plan: Secondary to acute prerenal azotemia. Now with good urine output and improved kidney function. His urine protein to creatinine ratio is 96. Patient could have a possible underlying kidney disease with microalbuminuria. He could have underlying hypertensive nephrosclerosis. Encourage oral fluid intake and agree with discontinuation of IV fluids. (2) Right lower lobe pneumonia Is this a current diagnosis for this admission?: Yes Plan: On IV azithromycin and IV cefepime per hospitalist service. (3) SIRS (systemic inflammatory response syndrome) Is this a current diagnosis for this admission?: Yes Plan: Resolved. (4) Metabolic acidosis Is this a current diagnosis for this admission?: Yes Plan: With improvement of the kidney function this could be secondary to expansion acidosis. I will give the patient sodium bicarbonate while here in the hospital which could be discontinued upon discharge. (5) Hyponatremia Is this a current diagnosis for this admission?: Yes Plan: Resolved with hydration due to volume depletion. (6) Hypoalbuminemia Is this a current diagnosis for this admission?: Yes Plan: Start Nepro supplement. (7) Hypocalcemia Is this a current diagnosis for this admission?: Yes Plan: Corrected calcium is normal at 9.2. (8) Hypertension Qualifiers: Hypertension type: essential hypertension Qualified Code(s): I10 - Essential (primary) hypertension Is this a current diagnosis for this admission?: Yes Plan: I believe he is now at his baseline kidney function. May resume his blood pressure medications. (9) Diabetes mellitus type 2 in nonobese Is this a current diagnosis for this admission?: Yes - Notes Notes: From nephrology standpoint I think the patient can be discharged home anytime as long as everything else is okay. I will sign off at this point. Please call me for any other questions and if I can be of any further help. - Time Time with patient: 15-25 minutes
[2019-09-07] MEDS: AZITHROMYCIN 500 MG in DEXTROSE 5%-WATER 250 ML IV SCH (17:32)
--- NOTE | 2019-09-07 18:58 | PDOC PROGRESS REPORT ---
Subjective Progress Note for:: 09/07/19 Subjective:: The patient is feeling much better. His white blood cell count is finally normal. His renal function is almost normal. I asked him to remove his oxygen. If he is stable overnight he will discharge in the morning. Reason For Visit: SIRS SYNDROME,ELEVATED SERUM CREATININE Physical Exam Vital Signs: Temp Pulse Resp BP Pulse Ox 97.4 F 62 18 168/78 H 99 09/07/19 16:14 09/07/19 16:14 09/07/19 16:14 09/07/19 16:14 09/07/19 16:14 Intake & Output 09/06/19 09/07/19 09/08/19 06:59 06:59 06:59 Intake Total 2650 3440 2254 Output Total 1430 2100 850 Balance 1220 1340 1404 Weight 79.2 kg 79.2 kg General appearance: PRESENT: no acute distress, cooperative, well-developed, well-nourished Respiratory exam: PRESENT: prolonged expiratory phas, rhonchi - Right lung, symmetrical, unlabored. ABSENT: tachypnea, wheezes Cardiovascular exam: PRESENT: RRR, +S1, +S2, systolic murmur. ABSENT: irregular rhythm Rectal exam: PRESENT: deferred Gentrourinary exam: ABSENT: indwelling catheter Extremities exam: ABSENT: pedal edema Musculoskeletal exam: PRESENT: ambulatory, full ROM, normal inspection. ABSENT: deformity Neurological exam: PRESENT: alert, awake, oriented to person, oriented to place, oriented to time, oriented to situation, CN II-XII grossly intact. ABSENT: motor sensory deficit Psychiatric exam: PRESENT: appropriate affect. ABSENT: agitated, anxious Results Laboratory Results: 09/07/19 04:42 09/07/19 04:42 09/07/19 09/07/19 04:42 04:42 WBC 9.2 RBC 3.25 L Hgb 10.0 L Hct 28.7 L MCV 88 MCH 30.7 MCHC 34.8 RDW 14.3 H Plt Count 174 Seg Neutrophils % 77.8 Sodium 138.0 Potassium 3.9 Chloride 114 H Carbon Dioxide 17 L Anion Gap 7 BUN 35 H Creatinine 1.36 H Est GFR ( Amer) > 60 Glucose 99 Calcium 7.7 L Phosphorus 3.6 Magnesium 2.2 Albumin 2.1 L Impressions: Renal Ultrasound 09/03/19 00:00 IMPRESSION: 1. NORMAL RENAL AND BLADDER ULTRASOUND. Chest X-Ray 09/05/19 00:00 IMPRESSION: Persistent right lower lobe pneumonia, similar compared to 09/03/2019 Assessment and Plan - Diagnosis (1) Right lower lobe consolidation Is this a current diagnosis for this admission?: Yes Plan: 09/04/2019 Currently on meropenem and azithromycin. We will recheck his white blood cell count and if it continues to go up consider using alternate antibiotics. Unfortunately with his kidney failure there would like to avoid the vancomycin. 09/05/2019 The patient's white count has not significantly improved and he is still spiking temperatures. Because of this I am changing his antibiotic therapy. I am discontinuing the meropenem and starting cefepime adjusted for his renal function. We will continue to monitor closely. Chest x-ray shows no improvement in the right lower lobe pneumonia. 09/06/2019 The change to cefepime appears to be helping. The patient reports loosening secretions in his lungs. His fever has not spiked as high as yesterday. His cough is productive of brownish sputum. Because he has been on antibiotic therapy obtaining a culture is not clinically indicated. We will continue the cefepime and azithromycin at this time. 09/07/2019 Much better today. Cefepime is definitely working. Hopeful for discharge tomorrow. Continue incentive spirometer and flutter valve (2) Acute respiratory failure with hypoxia Is this a current diagnosis for this admission?: Yes Plan: 09/04/2019 Secondary to pneumonia. Continue oxygen by nasal cannula. Tapered to room air as tolerated. 09/05/2019 The patient continues to require oxygen supplementation. Tapered to room air when appropriate. 09/06/2019 New antibiotic as above. No COPD therefore no inhalers at this time. We may consider nebulizer treatments to help break up the secretions. We will taper his oxygen to room air. Nebulizers may help this. The decision will be based on his clinical course. 09/07/2019 Attempt to room air overnight (3) Acute kidney injury superimposed on chronic kidney disease Is this a current diagnosis for this admission?: Yes Plan: 09/04/2019 The patient is being followed by nephrology. I have increased his fluids due to his fever and tachycardia. We will monitor his serum creatinine and BUN with daily labs. Nephrology is seeing the patient as well. 09/05/2019 Serum creatinine is slowly improving. His IV fluids will remain at the higher rate. Recheck laboratory studies tomorrow. 09/06/2019 Kidney function continues to improve. Serum creatinine now less than 2.0. Recheck laboratory studies tomorrow. 09/07/2019 Creatinine is down to 1.36. Continue fluids overnight. (4) Hypokalemia Is this a current diagnosis for this admission?: Yes Plan: 09/04/2019 Potassium is currently normal. Continue to monitor closely and supplement if needed. 09/05/2019 Serum potassium has dropped to just below the lower limit normal. I have started oral potassium supplementation. 09/06/2019 Serum potassium normal. Continue oral supplement. (5) Hyponatremia Is this a current diagnosis for this admission?: Yes Plan: 09/04/2019 Most likely secondary to the chronic kidney disease but could also be related to the respiratory infection. Continue to monitor with laboratory studies. No fluid restriction at this time. 09/05/2019 Continues to improve daily. Currently 136.5 with the lower limit normal 137 09/06/2019 As renal function has improved hyponatremia is now corrected and resolved (6) Tobacco use disorder, continuous Is this a current diagnosis for this admission?: Yes Plan: 09/04/2019 Nicotine patches available if needed 09/06/2019 Continue to encourage tobacco cessation (7) Leukocytosis Qualifiers: Leukocytosis type: other Qualified Code(s): D72.828 - Other elevated white blood cell count Is this a current diagnosis for this admission?: Yes Plan: 09/04/2019 Left shift with increased neutrophils. Manual bands noted. Leukocytosis secondary to pneumonia. Continue antibiotic therapy. White blood cell count is now normal. 09/05/2019 With the change in antibiotic therapy I expect the white blood cell count to improve. 09/06/2019 His white blood cell count increased slightly again today. His counts have been variable. We will reassess tomorrow 09/07/2019 Resolved (8) Tachycardia Is this a current diagnosis for this admission?: Yes Plan: 09/04/2019 Likely related to fever and infection. The patient may be on the dry side. We will continue IV fluids as well and monitor closely. 09/05/2019 This is likely secondary to the infection. We will continue IV fluids and I have started low-dose metoprolol. 09/06/2019 Low-dose metoprolol effective. Tachycardia resolved. (9) Hypertension Qualifiers: Hypertension type: essential hypertension Qualified Code(s): I10 - Essential (primary) hypertension Is this a current diagnosis for this admission?: Yes Plan: 09/04/2019 His blood pressure still varies. Initially he did have occasional map less than 70 but not for a prolonged time. Continue IV fluids and hold hydrochlorothiazide and telmisartan. Resume when blood pressure allows. 09/05/2019 Still exhibits wide fluctuations in blood pressure. We will continue to monitor with the addition of metoprolol. 09/06/2019 Slightly better but still variable. Continue to monitor. 09/07/2019 Still elevated. Will likely need medication adjustments as an outpatient. (10) Hyperglycemia due to type 2 diabetes mellitus Qualifiers: Diabetes mellitus group home insulin use: without intermediate school teacher use Qualified Code(s): E11.65 - Type 2 diabetes mellitus with hyperglycemia Is this a current diagnosis for this admission?: Yes Plan: 09/04/2019 The patient is on a diabetic diet. He is receiving Accu-Cheks and sliding scale coverage. Hemoglobin A1c was only 5.500. The patient does not excellent job with diet management. 09/05/2019 With Accu-Cheks and sliding scale coverage the patient exhibits excellent glucose control. 09/06/2019 Continue current regimen 09/07/2019 No change in treatment plan (11) Hyperbilirubinemia Is this a current diagnosis for this admission?: Yes Plan: 09/04/2019 Part of the sepsis related to pneumonia. Consider rechecking if clinically appropriate. (12) Fever Qualifiers: Fever type: due to other condition Qualified Code(s): R50.81 - Fever presenting with conditions classified elsewhere Is this a current diagnosis for this admission?: Yes Plan: 09/04/2019 Secondary to pneumonia. The patient is on antibiotic therapy. He did spike a fever again today. Will monitor closely. IV fluids have been increased. We will continue antibiotics as well. 09/05/2019 The T-max is slightly better today. Continue Tylenol. I expect improvement with the change in antibiotic therapy. 09/06/2019 T-max at midnight 102.6. Temperature has since worked down and is currently normal. 09/07/2019 Afebrile for over 24 hours (13) Sepsis due to pneumonia Is this a current diagnosis for this admission?: Yes Plan: 09/04/2019 The patient qualifies for sepsis due to hypoxemia, acute kidney injury and hyperbilirubinemia. Sepsis is secondary to pneumonia. Continue antibiotic therapy. 09/05/2019 Sepsis resolved - Plan Summary Summary: Patient will be admitted to the medical floor where he will receive routine supportive and symptomatic cares. He will be treated with high-volume IV fluids utilizing lactated Ringer's solution at 250 mL/h initially. He will receive meropenem 500 mg IV every 8 hours. Blood cultures are pending. He will use Ativan 1 mg IV every 4 hours as needed for restlessness or anxiety. He will receive morphine sulfate 2 to 4 mg IV every 2 hours as needed for pain utilizing a sliding scale for dosing. CBCs, metabolic profiles, hemoglobin A1c's, magnesium levels, lipid profiles, thyroid profiles and additional radiography will be obtained as appropriate. He will initially be treated with a cardiac, prerenal and diabetic restricted diet. A nephrology consultation with Dr. Heredia will be obtained. Patient's medication will need to be adjusted in light of his newly discovered renal disease. Before meals and at bedtime Accu- Cheks will be obtained with sliding scale insulin used to treat hyperglycemia and a hypoglycemic protocol in place. Smoking cessation is advised and counseled briefly at the bedside. A nicotine replacement patch will be available for the patient's use, if desired. - Time Time Spent with patient: 15-24 minutes Medications reviewed and adjusted accordingly: Yes Anticipated discharge: Home Within: within 24 hours
[2019-09-07] MEDS ORDERED: ALBUMIN HUMAN 12.5 GM/50 ML RTUINJ IV ONE (20:00)
[2019-09-08 02:30] VITALS: BP 145/68
[2019-09-08 05:45] LABS: ALBUMIN 2.2 g/dL (3.5-5.0); ANION GAP 6 (5-19); BLOOD UREA NITROGEN 30 mg/dL (7-20); CALCIUM 7.9 mg/dL (8.4-10.2); CARBON DIOXIDE 18 mmol/L (22-30); CHLORIDE 115 mmol/L (98-107); GLUCOSE 91 mg/dL (75-110); PHOSPHORUS 3.8 mg/dL (2.5-4.5); POTASSIUM 3.9 mmol/L (3.6-5.0)
[2019-09-08] MEDS: HEPARIN SOD (PORCINE) 5,000 UNIT/ML 1 ML VIAL SUBCUT SCH (05:51)
[2019-09-08] MEDS: NORMAL SALINE 1000 ML 1,000 ML IV PRN (06:47)
[2019-09-08] MEDS: INSULIN REG, HUMAN 100 UNIT/ML 3 ML VIAL (PYX) SUBCUT SCH ×2 (07:38→11:30)
[2019-09-08] MEDS: CEFEPIME 1 GM/D5W RTU 1 GM/50 ML RTUPB IV SCH (10:41)
[2019-09-08] MEDS: POTASSIUM CHLORIDE 10 MEQ TABLET.ER PO SCH (10:41)
[2019-09-08] MEDS: GUAIFENESIN 600 MG TABLET.SA PO SCH (10:41)
[2019-09-08] MEDS: FAMOTIDINE 20 MG TABLET PO SCH (10:41)
[2019-09-08] MEDS: CALCIUM CARBONATE 600 MG/VITAMIN D3 400 UNIT TABLET PO SCH (10:41)
[2019-09-08] MEDS: CALCIUM CARBONATE 600 MG TABLET PO SCH (10:41)
[2019-09-08] MEDS: ASPIRIN 325 MG TABLET, ENT COATED PO SCH (10:41)
[2019-09-08] MEDS: SODIUM BICARBONATE 650 MG TABLET PO SCH (10:41)
[2019-09-08] MEDS: METOPROLOL TARTRATE 25 MG TABLET PO SCH (10:42)
[2019-09-08] MEDS: DOCUSATE SODIUM 100 MG CAPSULE PO SCH (10:43)
--- NOTE | 2019-09-08 11:25 | PDOC DISCHARGE SUMMARY ---
Impression - Admit/DC Date/PCP Admission Date/Primary Care Provider: 09/03/19 04:06 Discharge Date: 09/08/19 - Discharge Diagnosis (1) Right lower lobe consolidation Is this a current diagnosis for this admission?: Yes (2) Acute respiratory failure with hypoxia Is this a current diagnosis for this admission?: Yes (3) Acute kidney injury superimposed on chronic kidney disease Is this a current diagnosis for this admission?: Yes (4) Hypokalemia Is this a current diagnosis for this admission?: Yes (5) Hyponatremia Is this a current diagnosis for this admission?: Yes (6) Tobacco use disorder, continuous Is this a current diagnosis for this admission?: Yes (7) Leukocytosis Is this a current diagnosis for this admission?: Yes (8) Tachycardia Is this a current diagnosis for this admission?: Yes (9) Hypertension Is this a current diagnosis for this admission?: Yes (10) Hyperglycemia due to type 2 diabetes mellitus Is this a current diagnosis for this admission?: Yes (11) Hyperbilirubinemia Is this a current diagnosis for this admission?: Yes (12) Fever Is this a current diagnosis for this admission?: Yes (13) Sepsis due to pneumonia Is this a current diagnosis for this admission?: Yes - Assessment Summary: Patient will be admitted to the medical floor where he will receive routine supportive and symptomatic cares. He will be treated with high-volume IV fluids utilizing lactated Ringer's solution at 250 mL/h initially. He will receive meropenem 500 mg IV every 8 hours. Blood cultures are pending. He will use Ativan 1 mg IV every 4 hours as needed for restlessness or anxiety. He will receive morphine sulfate 2 to 4 mg IV every 2 hours as needed for pain utilizing a sliding scale for dosing. CBCs, metabolic profiles, hemoglobin A1c's, magnesium levels, lipid profiles, thyroid profiles and additional radiography will be obtained as appropriate. He will initially be treated with a cardiac, prerenal and diabetic restricted diet. A nephrology consultation with Dr. Heredia will be obtained. Patient's medication will need to be adjusted in light of his newly discovered renal disease. Before meals and at bedtime Accu- Cheks will be obtained with sliding scale insulin used to treat hyperglycemia and a hypoglycemic protocol in place. Smoking cessation is advised and counseled briefly at the bedside. A nicotine replacement patch will be available for the patient's use, if desired. - Additional Information Resuscitation Status: Full Code Discharge Diet: Cardiac, Diabetic Discharge Activity: Activity As Tolerated Referrals: KYLE LING MD [COMMUNITY BASED STAFF] - 09/16/19 3:15 pm (CHECK IN AT 3PM) Prescriptions: Cefuroxime Axetil [Ceftin 500 mg Tablet] 1 tab PO BID #14 tablet Metoprolol Succinate [Toprol Xl 25 mg Tab.sr] 25 mg PO DAILY #15 tab.sr.24h Home Medications: Aspirin [Ecotrin 325 mg EC Tablet] 325 mg PO DAILY 09/03/19 Hydrochlorothiazide 12.5 mg PO QAM 09/03/19 Simvastatin 20 mg PO QPM 09/03/19 Telmisartan 80 mg PO QAM 09/03/19 Calcium Carbonate/Vitamin D3 [Caltrate 600-Vit D3 400 Tablet] 1 tab PO BID tablet 09/08/19 Cefuroxime Axetil [Ceftin 500 mg Tablet] 1 tab PO BID #14 tablet 09/08/19 Docusate Sodium [Colace 100 mg Capsule] 100 mg PO BID capsule 09/08/19 Guaifenesin [Mucinex Sr 600 mg Tablet.sa] 600 mg PO Q12 tablet.sa 09/08/19 Metoprolol Succinate [Toprol Xl 25 mg Tab.sr] 25 mg PO DAILY #15 tab.sr.24h 09/08/19 Nicotine [Nicoderm 21 mg/24 Hr Transderm Patch] 1 each TD DAILYP PRN patch.td24 09/08/19 History of Present Illiness History of Present Illness: BRUNILDA LIMON is a 63 year old male who presented emergency room with a 1 day history of fever. He admits rapid onset of a subjective fever beginning on the morning of 09/02/2019. His fever was accompanied by chills, mild dyspnea, headache and a nonproductive cough. His fever was associated with severe malaise, ague, and decreased appetite. He denies other associated or accompanying signs and symptoms. He denies prior similar episodes. He has not identified any aggravating or ameliorating factors for his fever. In the emergency room he was found to have a fever of 103 F with a mild tachycardia and mild hypoxia. His white blood count was mildly elevated at 12,000 however his serum creatinine was 3.61. He was treated as a possible sepsis in the ER and subsequently admitted to the hospital for further evaluation and treatment. He was tested negative for COVID-19 in the ER. Hospital Course Hospital Course: The patient did not respond well to the meropenem initially. After several days I changed to cefepime along with the azithromycin. This in fact began to be more effective. The patient finally became afebrile. His white blood cell count finally normalized. He was able to tolerate last night without oxygen therapy at all. His acute kidney injury slowly resolved. His serum creatinine is back to normal today. Physical Exam Vital Signs: Temp Pulse Resp BP Pulse Ox 98.6 F 74 17 145/68 H 98 09/08/19 00:00 09/08/19 00:00 09/08/19 00:00 09/08/19 00:00 09/08/19 00:00 Intake & Output 09/07/19 09/08/19 09/09/19 06:59 06:59 06:59 Intake Total 3440 5324 Output Total 2100 1700 Balance 1340 3624 Weight 79.2 kg 78.7 kg General appearance: PRESENT: no acute distress, well-developed, well-nourished Respiratory exam: PRESENT: rhonchi - Right base, unlabored. ABSENT: rales, wheezes Cardiovascular exam: PRESENT: RRR, +S1, +S2 GI/Abdominal exam: PRESENT: normal bowel sounds, soft. ABSENT: distended, tenderness Neurological exam: PRESENT: alert, awake, oriented to person, oriented to place, oriented to time, oriented to situation, CN II-XII grossly intact. ABSENT: motor sensory deficit Psychiatric exam: PRESENT: appropriate affect, normal mood. ABSENT: agitated, anxious Results Laboratory Results: WBC 9.2 10^3/uL (4.0-10.5) 09/07/19 04:42 RBC 3.25 10^6/uL (4.35-5.55) L 09/07/19 04:42 Hgb 10.0 g/dL (13.5-17.0) L 09/07/19 04:42 Hct 28.7 % (37.9-51.0) L 09/07/19 04:42 MCV 88 fl (80-97) 09/07/19 04:42 MCH 30.7 pg (27.0-33.4) 09/07/19 04:42 MCHC 34.8 g/dL (32.0-36.0) 09/07/19 04:42 RDW 14.3 % (11.5-14.0) H 09/07/19 04:42 Plt Count 174 10^3/uL (150-450) 09/07/19 04:42 Lymph % (Auto) 10.1 % (13-45) L 09/07/19 04:42 [place] % (Auto) 10.1 % (3-13) 09/07/19 04:42 Eos % (Auto) 1.7 % (0-6) 09/07/19 04:42 Baso % (Auto) 0.3 % (0-2) 09/07/19 04:42 Absolute Neuts (auto) 7.2 10^3/uL (1.7-8.2) 09/07/19 04:42 Absolute Lymphs (auto) 0.9 10^3/uL (0.5-4.7) 09/07/19 04:42 Absolute Monos (auto) 0.9 10^3/uL (0.1-1.4) 09/07/19 04:42 Absolute Eos (auto) 0.2 10^3/uL (0.0-0.6) 09/07/19 04:42 Absolute Basos (auto) 0.0 10^3/uL (0.0-0.2) 09/07/19 04:42 Seg Neutrophils % 77.8 % (42-78) 09/07/19 04:42 Sodium 138.5 mmol/L (137-145) 09/08/19 04:48 Potassium 3.9 mmol/L (3.6-5.0) 09/08/19 04:48 Chloride 115 mmol/L (98-107) H 09/08/19 04:48 Carbon Dioxide 18 mmol/L (22-30) L 09/08/19 04:48 Anion Gap 6 (5-19) 09/08/19 04:48 BUN 30 mg/dL (7-20) H 09/08/19 04:48 Creatinine 1.15 mg/dL (0.52-1.25) 09/08/19 04:48 Est GFR ( Amer) > 60 (>60) 09/08/19 04:48 Est GFR (MDRD) Non-Af > 60 (>60) 09/08/19 04:48 Glucose 91 mg/dL (75-110) 09/08/19 04:48 POC Glucose 131 mg/dL (70-110) H 09/08/19 11:10 Hemoglobin A1c % 5.5 % (4.7-6.0) 09/04/19 05:32 Lactic Acid 1.2 mmol/L (0.7-2.1) 09/03/19 05:03 Calcium 7.9 mg/dL (8.4-10.2) L 09/08/19 04:48 Phosphorus 3.8 mg/dL (2.5-4.5) 09/08/19 04:48 Magnesium 2.2 mg/dL (1.6-2.3) 09/07/19 04:42 Total Bilirubin 1.8 mg/dL (0.2-1.3) H 09/02/19 20:50 Direct Bilirubin 1.2 mg/dL (0.0-0.4) H 09/02/19 20:50 Neonat Total Bilirubin Not Reportable 09/02/19 20:50 Neonat Direct Bilirubin Not Reportable 09/02/19 20:50 Neonat Indirect Bili Not Reportable 09/02/19 20:50 AST 55 U/L (17-59) 09/02/19 20:50 ALT 24 U/L (<50) 09/02/19 20:50 Alkaline Phosphatase 74 U/L (38-126) 09/02/19 20:50 Total Protein 7.1 g/dL (6.3-8.2) 09/02/19 20:50 Albumin 2.2 g/dL (3.5-5.0) L 09/08/19 04:48 Triglycerides 119 mg/dL (<150) 09/04/19 05:32 Cholesterol 70.54 mg/dL (0-200) 09/04/19 05:32 LDL Cholesterol Direct < 30 mg/dL (<100) 09/04/19 05:32 VLDL Cholesterol 24.0 mg/dL (10-31) 09/04/19 05:32 HDL Cholesterol 21 mg/dL (>40) L 09/04/19 05:32 TSH 0.94 uIU/mL (0.47-4.68) 09/04/19 05:32 Free T3 pg/mL 2.78 pg/mL (2.77-5.27) 09/02/19 20:50 Urine Color MAYI 09/03/19 01:48 Urine Appearance CLOUDY 09/03/19 01:48 Urine pH 5.0 (5.0-9.0) 09/03/19 01:48 Ur Specific [place] 1.017 09/03/19 01:48 Urine Protein 100 mg/dL (NEGATIVE) H 09/03/19 01:48 Urine Glucose (UA) NEGATIVE mg/dL (NEGATIVE) 09/03/19 01:48 Urine Ketones NEGATIVE mg/dL (NEGATIVE) 09/03/19 01:48 Urine Blood LARGE (NEGATIVE) H 09/03/19 01:48 Urine Nitrite (Reflex) NEGATIVE (NEGATIVE) 09/03/19 01:48 Urine Bilirubin NEGATIVE (NEGATIVE) 09/03/19 01:48 Urine Urobilinogen 4.0 mg/dL (<2.0) H 09/03/19 01:48 Leukocyte Esterase Rfl NEGATIVE (NEGATIVE) 09/03/19 01:48 Urine RBC (Auto) 4 /HPF 09/03/19 01:48 U Hyaline Cast (Auto) 2 /LPF 09/03/19 01:48 Urine Bacteria (Auto) TRACE /HPF 09/03/19 01:48 Urine WBC (Reflex) 6 /HPF 09/03/19 01:48 Squamous Epi Cells Auto 1 /HPF 09/03/19 01:48 Urine Mucus (Auto) RARE /LPF 09/03/19 01:48 Urine Creatinine 109.5 mg/dL (Not Estab.) 09/03/19 22:20 Urine Microalbumin 105.0 ug/mL (Not Estab.) 09/03/19 22:20 Microalb/Creat Ratio 96 mg/g creat (0-29) H 09/03/19 22:20 Urine Ascorbic Acid NEGATIVE (NEGATIVE) 09/03/19 01:48 Influenza A (Rapid) NEGATIVE (NEGATIVE) 09/02/19 22:47 Influenza B (Rapid) NEGATIVE (NEGATIVE) 09/02/19 22:47 SARS-CoV-2 (PCR) NEGATIVE (NEGATIVE) 09/03/19 01:49 Group A Strep Rapid NEGATIVE (NEGATIVE) 09/02/19 22:47 Impressions: Chest X-Ray 09/02/19 21:46 IMPRESSION: No evidence of acute cardiopulmonary disease. Renal Ultrasound 09/03/19 00:00 IMPRESSION: 1. NORMAL RENAL AND BLADDER ULTRASOUND. Chest X-Ray 09/03/19 08:09 IMPRESSION: Right lower lobe pneumonia. Chest X-Ray 09/05/19 00:00 IMPRESSION: Persistent right lower lobe pneumonia, similar compared to 09/03/2019 Plan Health Concerns: Diabetes with kidney disease Resistant pneumonia Plan of Treatment: Complete antibiotics as ordered. Follow-up with Dr. Frias for repeat blood work. Changes in medications as noted above. Goals: Continued control of renal function and diabetes. Time Spent: Greater than 30 Minutes Stroke Is this a Stroke Patient?: No Acute Heart Failure - Is this a Heart Failure Patient?: No
== END 2019-09-08 12:10 | disposition home or self-care (01) | DRG 871 ==
LOC: ER 20:24 → EH 09-03 04:06 → 3W 09-03 05:50 → 4N 09-07 20:56
PROVIDERS: ADMIT Emergency Medicine; ATTEND Hospitalist
DX: A41.9 Sepsis, unspecified organism (principal); J18.9 Pneumonia, unspecified organism; J96.01 Acute respiratory failure with hypoxia; E87.1 Hypo-osmolality and hyponatremia; N17.9 Acute kidney failure, unspecified; F17.210 Nicotine dependence, cigarettes, uncomplicated; E87.6 Hypokalemia; E11.22 Type 2 diabetes mellitus with diabetic chronic kidney disease; I12.9 Hypertensive chronic kidney disease with stage 1 through stage 4 chronic kidney disease, or unspecified chronic kidney disease; N18.9 Chronic kidney disease, unspecified; E11.65 Type 2 diabetes mellitus with hyperglycemia; E83.51 Hypocalcemia; Z83.3 Family history of diabetes mellitus; Z20.828 Contact with and (suspected) exposure to other viral communicable diseases
CPT/HCPCS: 36415; 71045; 71046; 76775; 80048; 80053; 80061; 80069; 81001; 82043; 82570; 82962; 83036; 83605; 83735; 84443; 84481; 85025; 85027; 87040; 87070; 87635; 87804; 87880; 93005; 93010; 94667; 94668; 94799; 96361; 96365; 99291; J0456; J0692; J1644; J2185; J2543; J3490; J7030; J7050; J7060; P9047

== ENCOUNTER → 2019-10-12 | Outpatient (CLI) | payer MEDICARE, OTHER ==
--- NOTE | 2019-10-12 12:40 | RADIOLOGY REPORT (SQ) ---
EXAM DESCRIPTION: CHEST PA/LATERAL IMAGES COMPLETED DATE/TIME: 10/12/2019 12:16 pm REASON FOR STUDY: LOBAR PNEUMONIA, UNSPECIFIED ORGANISM COMPARISON: 09/05/2019 EXAM PARAMETERS: NUMBER OF VIEWS: two views TECHNIQUE: Digital Frontal and Lateral radiographic views of the chest acquired. RADIATION DOSE: NA LIMITATIONS: none FINDINGS: LUNGS AND PLEURA: There is almost complete clearing of the right lower lobe pneumonia. Ca nnot exclude mild residual infiltrate. MEDIASTINUM AND HILAR STRUCTURES: No masses or contour abnormalities. HEART AND VASCULAR STRUCTURES: Heart normal size. No evidence for failure. BONES: No acute findings. HARDWARE: None in the chest. OTHER: No other significant finding. IMPRESSION: Significant improvement in the appearance of the chest. Cannot exclude mild residual in filtrate in a right lower lobe. TECHNICAL DOCUMENTATION: JOB ID: [id number] 2010 [employer]- All Rights Reserved Reading location - IP/workstation name: [email or web address]
== END ==
LOC: OD 11:59
PROVIDERS: ATTEND Internal Medicine
DX: J18.1 Lobar pneumonia, unspecified organism (principal)
CPT/HCPCS: 71046

== ENCOUNTER → 2019-10-29 | Outpatient (CLI) | payer MEDICARE, OTHER ==
--- NOTE | 2019-10-29 15:54 | RADIOLOGY REPORT (SQ) ---
EXAM DESCRIPTION: CHEST PA/LATERAL IMAGES COMPLETED DATE/TIME: 10/29/2019 2:39 pm REASON FOR STUDY: LOBAR PNEUMONIA, UNSPECIFIED ORGANISM COMPARISON: 10/12/2019 EXAM PARAMETERS: NUMBER OF VIEWS: two views TECHNIQUE: Digital Frontal and Lateral radiographic views of the chest acquired. RADIATION DOSE: NA LIMITATIONS: none FINDINGS: LUNGS AND PLEURA: No opacities, masses or pneumothorax. No pleural effusion. MEDIASTINUM AND HILAR STRUCTURES: No masses or contour abnormalities. HEART AND VASCULAR STRUCTURES: Heart normal size. No evidence for failure. BONES: No acute findings. HARDWARE: None in the chest. OTHER: No other significant finding. IMPRESSION: NO SIGNIFICANT RADIOGRAPHIC FINDING IN THE CHEST. TECHNICAL DOCUMENTATION: JOB ID: [id number] 2010 [employer]- All Rights Reserved Reading location - IP/workstation name: [email or web address]
== END ==
LOC: OD 14:27
PROVIDERS: ATTEND Physician Assistant
DX: J18.1 Lobar pneumonia, unspecified organism (principal)
CPT/HCPCS: 71046